=== PATIENT | male | born 1965 | race Caucasian/White ===

== ENCOUNTER 2017-03-01 18:40 | Emergency (ER) | payer MEDICARE ==
[2017-03-01 18:47] VITALS: BP 138/79; PULSE 79; RESP 20; TEMP 99
--- NOTE | 2017-03-01 20:11 | ED ---
ENT HPI - General Chief complaint: ENT Stated complaint: sore throat, naseem, difficulty swallowing Time Seen by Provider: 03/01/17 19:46 Source: patient Mode of arrival: ambulatory Limitations: no limitations - History of Present Illness Initial comments: Patient is a 51-year-old male presenting to the emergency department with chief complaint of sore throat that started one day ago. Patient states it feels like swallowing glass when he tries to drink something. Patient states he takes doxycycline every day for chronic tooth infection. Patient denies dental pain. Patient denies chills, fevers, nausea, vomiting, shortness of breath, chest pain, abdominal pain, numbness or tingling. Patient denies similar symptoms in past. Patient denies sick contacts. Patient denies ear pain. - Related Data Home Medications Medication Instructions Recorded Confirmed ALPRAZolam [Xanax] 0.25 mg PO BID PRN 03/01/17 03/01/17 Atorvastatin [Lipitor] 40 mg PO HS 03/01/17 03/01/17 Doxycycline Hyclate 100 mg PO DAILY 03/01/17 03/01/17 HYDROcodone/APAP 5-325MG [[place] 1 tab PO QID PRN 03/01/17 03/01/17 5-325] Lisinopril-Hctz 20-25 mg 1 tab PO DAILY 03/01/17 03/01/17 [Zestoretic 20-25] Meloxicam [Mobic] 15 mg PO DAILY 03/01/17 03/01/17 Metoprolol Tartrate [Lopressor] 25 mg PO BID 03/01/17 03/01/17 sitaGLIPtin PHOS/metFORMIN HCL 1 tab PO BID 03/01/17 03/01/17 [Janumet 50-1,000 mg Tablet] Allergies Allergy/AdvReac Type Severity Reaction Status Date / Time latex AdvReac Rash/Hives Verified 03/01/17 19:33 Review of Systems ROS Statement: Those systems with pertinent positive or pertinent negative responses have been documented in the HPI. ROS Other: All systems not noted in ROS Statement are negative. Past Medical History Past Medical History: No Reported History History of Any Multi-Drug Resistant Organisms: None Reported Past Surgical History: No Surgical Hx Reported Past Psychological History: Anxiety Smoking Status: Current every day smoker Past Alcohol Use History: None Reported Past Drug Use History: None Reported General Exam Limitations: no limitations General appearance: alert, in no apparent distress Head exam: Present: atraumatic, normocephalic, normal inspection Eye exam: Present: normal appearance, scleral icterus. Absent: conjunctival injection, periorbital swelling, periorbital tenderness ENT exam: Present: mucous membranes moist, TM's normal bilaterally, normal external ear exam. Absent: normal oropharynx (Posterior pharynx erythematous without exudate) Expanded Mouth exam: Present: tongue normal. Absent: drooling, trismus, muffled voice Teeth exam: Present: other (Poor dentition but no evidence of abscess. No swollen gums) Throat exam: other (Posterior pharynx erythema without exudate). negative: tonsillar erythema, tonsillomegaly, R peritonsillar mass, L peritonsillar mass Neck exam: Present: normal inspection, full ROM. Absent: tenderness, meningismus, lymphadenopathy Respiratory exam: Present: normal lung sounds bilaterally. Absent: respiratory distress, wheezes, rales, rhonchi, stridor Cardiovascular Exam: Present: regular rate, normal rhythm, normal heart sounds. Absent: systolic murmur, diastolic murmur, rubs, gallop, clicks GI/Abdominal exam: Present: soft, normal bowel sounds. Absent: tenderness Extremities exam: Present: normal inspection, full ROM. Absent: tenderness Neurological exam: Present: alert, oriented X3, normal gait, other (No focal deficits noted) Psychiatric exam: Present: normal affect, normal mood Skin exam: Present: warm, dry, intact, normal color Course Vital Signs 03/01/17 18:44 Temperature 99 F Pulse Rate 79 Respiratory 20 Rate Blood Pressure 138/79 O2 Sat by Pulse 97 Oximetry Medical Decision Making - Medical Decision Making Pharyngitis suspect viral. Patient instructed to continue Motrin or Tylenol for pain along with soft and cold foods. Patient instructed to use warm salt water gargles and throat lozenges. Patient instructed to follow-up with primary care physician. Patient instructed to return to the emergency department with any new or worsening symptoms. Patient agrees to treatment plan. Discharge instructions and return parameters reviewed. - Lab Data Lab Results 03/01/17 Range/Units 19:54 Group A Strep Rapid Negative (Negative) Disposition Clinical Impression: Pharyngitis Disposition: HOME SELF-CARE Condition: Good Instructions: Pharyngitis (ED) Additional Instructions: Continue soft and cold foods. Continue Tylenol or Motrin for pain. Use warm saltwater gargles and throat lozenges as necessary. Follow-up with primary care physician as directed. Please return to the emergency department with difficulty breathing, inability to swallow or open jaw, or any other worsening symptoms. Referrals: Patrick English MD [Primary Care Provider] - 1-2 days Time of Disposition: 20:33
[2017-03-01] MEDS ORDERED: IBUPROFEN 600 MG TAB PO STA (20:29)
== END 2017-03-01 20:37 | disposition home or self-care (01) ==
LOC: EC 18:40
DX: J02.9 Acute pharyngitis, unspecified (principal); F17.200 Nicotine dependence, unspecified, uncomplicated; Z91.040 Latex allergy status; Z79.1 Long term (current) use of non-steroidal anti-inflammatories (NSAID); Z79.84 Long term (current) use of oral hypoglycemic drugs; Z79.899 Other long term (current) drug therapy
CPT/HCPCS: 87081; 87430; 99284

== ENCOUNTER 2017-06-27 18:58 | Inpatient (IN) | payer MEDICARE, OTHER ==
[2017-06-27 19:38] LABS: Basophils # (A) 0.1 k/uL (0-0.2); Basophils % (A) 1 %; CH 31.3; CHCM 33.7; Eosinophils # (A) 0.4 k/uL (0-0.7); Eosinophils % (A) 4 %; HCT 44.9 % (39.0-53.0); HDW 2.48; HGB 14.7 gm/dL (13.0-17.5); Luc # (Auto) 0.16; Luc % (Auto) 2; Lymphocytes # (A) 3.6 k/uL (1.0-4.8); Lymphocytes % (A) 36 %; MCH 30.6 pg (25.0-35.0); MCHC 32.8 g/dL (31.0-37.0); MCV 93.3 fL (80.0-100.0); Mean Platelet Volume 7.8; Monocytes # (A) 0.6 k/uL (0-1.0); Monocytes % (A) 6 %; Neutrophils # (A) 5.2 k/uL (1.3-7.7); Neutrophils % (A) 51 %; RBC 4.81 m/uL (4.30-5.90); RDW 13.1 % (11.5-15.5); WBC (Perox) 9.91
[2017-06-27 20:15] LABS: Anion Gap 10 mmol/L; Blood Urea Nitrogen 17 mg/dL (9-20); Carbon Dioxide 25 mmol/L (22-30); Chloride 101 mmol/L (98-107); Glucose 198 mg/dL (74-99); Non-African American GFR(MDRD) >60 (>60 ml/min/1.73 sqM); Potassium 4.1 mmol/L (3.5-5.1); Sodium 136 mmol/L (137-145)
[2017-06-27] MEDS ORDERED: HEPARIN SODIUM,PORCINE 5,000 UNIT/ML 1 ML VIAL IV PRN (20:34)
[2017-06-27 20:44] LABS: Glucose,Whole Blood 242 mg/dL (75-99)
[2017-06-27] MEDS ORDERED: HEPARIN SODIUM,PORCINE/D5W PMX 25,000 UNIT in DEXTROSE/WATER 1 500ML.BAG IV SCH (20:45)
[2017-06-27] MEDS ORDERED: ASPIRIN 81 MG PO STA (20:59)
[2017-06-27] MEDS ORDERED: NITROGLYCERIN OINT 1 INCH/GM PACKET TOPICAL PRN (21:00)
[2017-06-27] MEDS ORDERED: LORATADINE 10 MG TAB PO SCH (21:00)
[2017-06-27] MEDS: ALPRAZolam 0.5 MG TAB PO PRN (21:35)
[2017-06-27] MEDS: INSULIN LISPRO (humaLOG) 300 UNIT/3 ML VIAL SQ SCH (21:39)
[2017-06-27] MEDS: LISINOPRIL-HCTZ 20-25 MG 1 EACH TAB PO SCH (21:39)
[2017-06-27] MEDS: SODIUM CHLORIDE 0.9% 1,000 ML IV SCH (22:04)
[2017-06-27] MEDS ORDERED: HYDROcodone/APAP 10-325MG 1 EACH TAB PO PRN (22:14)
[2017-06-27] MEDS ORDERED: ALBUTEROL NEBULIZED 2.5 MG/3 ML INHALATION PRN (22:18)
[2017-06-28 02:32] LABS: Basophils # (A) 0.1 k/uL (0-0.2); Basophils % (A) 1 %; CH 30.3; CHCM 33.3; Eosinophils # (A) 0.4 k/uL (0-0.7); Eosinophils % (A) 4 %; HCT 41.2 % (39.0-53.0); HDW 2.32; HGB 13.8 gm/dL (13.0-17.5); Luc # (Auto) 0.15; Luc % (Auto) 2; Lymphocytes # (A) 3.1 k/uL (1.0-4.8); Lymphocytes % (A) 37 %; MCH 30.6 pg (25.0-35.0); MCHC 33.4 g/dL (31.0-37.0); MCV 91.6 fL (80.0-100.0); Mean Platelet Volume 8.8; Monocytes # (A) 0.6 k/uL (0-1.0); Monocytes % (A) 7 %; Neutrophils # (A) 4.1 k/uL (1.3-7.7); Neutrophils % (A) 49 %; RDW 14.2 % (11.5-15.5); WBC 8.4 k/uL (3.8-10.6); WBC (Perox) 8.83
[2017-06-28 02:50] LABS: Anion Gap 5 mmol/L; Blood Urea Nitrogen 18 mg/dL (9-20); Calcium 9.1 mg/dL (8.4-10.2); Carbon Dioxide 27 mmol/L (22-30); Chloride 103 mmol/L (98-107); Glucose 204 mg/dL (74-99); Non-African American GFR(MDRD) >60 (>60 ml/min/1.73 sqM); Sodium 135 mmol/L (137-145)
[2017-06-28 05:24] LABS: Glucose,Whole Blood 183 mg/dL (75-99)
[2017-06-28] MEDS: INSULIN LISPRO (humaLOG) 300 UNIT/3 ML VIAL SQ SCH ×2 (06:15→13:13)
[2017-06-28] MEDS: SODIUM CHLORIDE 0.9% 1,000 ML IV SCH ×2 (06:16→16:50)
[2017-06-28] MEDS: LISINOPRIL-HCTZ 20-25 MG 1 EACH TAB PO SCH (06:18)
[2017-06-28] MEDS ORDERED: MIDAZOLAM 2 MG/2 ML VIAL IVP ONE (07:43)
[2017-06-28] MEDS ORDERED: diphenhydrAMINE 50 MG/ML 1 ML VIAL IVP ONE (07:43)
[2017-06-28] MEDS ORDERED: LIDOCAINE 2% INJ 20 MG/ML SQ ONE (07:44)
[2017-06-28] MEDS ORDERED: fentaNYL (PF) 50 MCG/ML 2 ML AMP IVP ONE (07:46)
[2017-06-28] MEDS ORDERED: SODIUM CHLORIDE 0.9% 1,000 ML IV ONE (07:48)
[2017-06-28] MEDS ORDERED: BUDESONIDE 0.5 MG/2 ML NEBU INHALATION SCH (08:00)
[2017-06-28] MEDS ORDERED: RX INFO: IV CONTRAST WAS GIVEN 1 EACH MISC MISCELLANE PRN (08:00)
[2017-06-28] MEDS ORDERED: IOHEXOL 350 MG/ML 125ML BOTTLE INJ ONE (08:04)
--- NOTE | 2017-06-28 08:08 | P.OP ---
Date of Procedure: 06/28/17 Anesthesia: MAC (patient received moderate conscious sedation total sedation time was 15 minutes) Operative Findings: Referring Physician: [ADAMS Haro] Indication: [unstable angina] Procedure Note: [] After obtaining informed consent left heart catheterization and coronary angiogram were performed via the right femoral artery using standard Ke catheters. Patient tolerated the procedure well without any obvious immediate complications. A femoral angiogram was obtained and Angio-Seal was deployed for hemostasis. Findings: [] Hemodynamics: [left ventricular end-diastolic pressure is 18 mm Left Ventriculogram: [Not performed] Angiographic Data:] #1 Left Main Coronary Artery: [Normal size vessel and is free of stenosis] #2 Left Anterior Descending Coronary Artery: [Normal vessel and diagonal branches . mild nonobstructive disease in mid LAD] #3 Circumflex Coronary Artery: [Nondominant vessel and is free of stenosis] #4 Right Coronary Artery: [Large dominant vessel and is free of stenosis] Conclusions: #1: [mild nonobstructive disease in mid LAD] #2: [elevated left ventricular end-diastolic pressure] Plan: [medical therapy with aggressive risk factor modification]
[2017-06-28] MEDS ORDERED: ISOSORBIDE MONONITRATE ER 30 MG TAB.ER.24H PO SCH (09:00)
[2017-06-28] MEDS ORDERED: MELOXICAM 7.5 MG TAB PO SCH (09:00)
[2017-06-28] MEDS ORDERED: FAMOTIDINE 20 MG TAB PO SCH (09:00)
[2017-06-28] MEDS ORDERED: METOPROLOL SUCCINATE (ER) 100 MG TAB.ER.24H PO SCH (09:00)
[2017-06-28] MEDS ORDERED: metFORMIN 500 MG TAB PO SCH (09:00)
[2017-06-28] MEDS ORDERED: ASPIRIN 81 MG PO SCH (09:00)
[2017-06-28] MEDS ORDERED: ATORVASTATIN 40 MG TAB PO SCH (09:00)
[2017-06-28] MEDS ORDERED: PARoxetine 20 MG TAB PO SCH (09:00)
[2017-06-28] MEDS ORDERED: NICOTINE 21MG/24HR PATCH TRANSDERM SCH (09:00)
[2017-06-28] MEDS ORDERED: hydrALAZINE HCL 20 MG/ML 1 ML VIAL IVP PRN (11:07)
[2017-06-28 11:40] LABS: Glucose,Whole Blood 176 mg/dL (75-99)
[2017-06-28] MEDS ORDERED: CHOLECALCIFEROL 1,000 UNIT TAB PO SCH (12:00)
[2017-06-28 13:20] VITALS: BP 122/74; PULSE 72; RESP 16; TEMP 97
--- NOTE | 2017-06-28 14:12 | HP ---
HISTORY AND PHYSICAL DATE OF SERVICE: 06/28/2017. HISTORY OF PRESENT ILLNESS: The patient is a 52-year-old male who was admitted to [facility] with severe chest pain that lasted approximately 20 minutes and was relieved with nitroglycerin. Patient was seen by Cardiology at that time. Does have a known history of smoking, diabetes mellitus and hypertension as well as obstructive sleep apnea and does wear CPAP. The patient also with a previous cardiac cath many years ago, which was negative, done by the [place]. The patient was transferred from [facility] to [facility] for cardiac cath, which will be done today. PAST MEDICAL HISTORY: Is significant for diabetes mellitus type 2, hypertension, anxiety, high cholesterol. PAST SURGICAL HISTORY: Is significant for an appendectomy, shoulder arthroscopy, and a previous cardiac cath which was negative. ALLERGIES: Include LATEX. HOME MEDICATIONS: Claritin 10 mg p.o. daily, Lipitor 40 mg p.o. daily. Glucophage 500 mg p.o. daily. Paxil 40 mg p.o. daily. Mobic 15 mg p.o. b.i.d., lisinopril/hydrochlorothiazide 20/25 one tab p.o. b.i.d., and Xanax 1 mg p.o. b.i.d. p.r.n. SOCIAL HISTORY: Patient does have a history of smoking 2 packs per day. Denies alcohol use or any illicit drug use. The patient is a and was in [employer] for approximately 8 years and was exposed to asbestos at that time. REVIEW OF SYSTEMS: A 14-point review of systems was performed and is negative other than as stated in the HPI. PHYSICAL EXAM: General is a pleasant 52-year-old male who was seen lying in bed, just returned from the cardiac cath, sleeping but easily arousable and his is at the bedside. VITAL SIGNS: Temp 97, heart rate is 72, respiratory rate 16, blood pressure is 122/74, O2 sats 97% on room air. HEENT: Head is normocephalic, atraumatic. Pupils equal, round, react to light. Ears and nose, no discharge is noted. Mouth, moist mucous membranes. Redundant tissue in the posterior pharynx. NECK: Supple. Trachea is midline. LUNGS: With decreased breath sounds. No clear rales or wheezes. Prolonged expiratory phase. HEART: S1, S2 heard. Not tachycardic. ABDOMEN: Soft, obese. Bowel sounds are heard. EXTREMITIES: With no edema. NEUROLOGIC: Patient is sleeping but easily arousable. LAB: White count 3.4, hemoglobin 13.8, hematocrit 41.2 with 159,000 platelets. Sodium is 135, potassium is 4.0, chloride is 103, CO2 is 27, anion gap is 5, BUN is 18, creatinine 0.70, glucose is 204, calcium 9.1. Troponins less than 0.012 x2 respectively. IMAGING: No imaging to review. IMPRESSION: 1. Acute coronary syndrome, status post cardiac cath. 2. Obesity. 3. Chronic obstructive pulmonary disease, stable. 4. Type 2 diabetes mellitus. 5. Nicotine dependence. 6. Obstructive sleep apnea. PLAN: Continue current medications which have been reviewed to include patient's home medication. Continue leukotriene inhibitors. Continue bronchodilators and aerosolized steroids. GI and DVT prophylaxis. Smoking cessation is highly recommended. Cardiology recs appreciated. Expect the patient will discharge home later on this afternoon if remains stable and cardiac cath is negative. MMODL / IJN: [id number] /
[2017-06-28] MEDS: ALPRAZolam 0.5 MG TAB PO PRN (15:46)
--- NOTE | 2017-06-28 16:24 | P.DS ---
Providers Date of admission: 06/27/17 18:58 Attending physician: Bob Haro Consults: 06/27/17 20:33 Consult Physician Urgent Consulting Provider: Sebas Strauss Consult Reason/Comments: Heart cath Do you want consulting provider notified?: Yes Primary care physician: Stated None Dr. ADAMS Haro Hospital Course: Patient transferred from [facility] for left heart catheterization. The patient had no post-operative complications. Medical management per cardiology team. Ok to discharge per cardiology. Diabetes management and smoking cessation discussed. Procedures: Left heart catheterization Plan - Discharge Summary Discharge Rx Participant: Yes New Discharge Prescriptions: New Albuterol Nebulized [Ventolin Nebulized] 2.5 mg INHALATION RT-QID PRN #120 nebu PRN Reason: Shortness Of Breath Or Wheezing Aspirin 81 mg PO DAILY 30 Days #30 chew Budesonide [Pulmicort] 0.5 mg INHALATION RT-BID 30 Days #60 nebu Cholecalciferol [Vitamin D3] 5,000 unit PO DAILY@1200 30 Days #30 tab Isosorbide Mononitrate ER [Imdur] 30 mg PO DAILY #30 tab.er.24h Metoprolol Succinate (ER) [Toprol XL] 100 mg PO BID #30 tab.er.24h Montelukast [Singulair] 10 mg PO HS 30 Days #30 tab Nicotine 21Mg/24Hr Patch [Habitrol] 1 patch TRANSDERM DAILY #15 patch Continue Meloxicam [Mobic] 15 mg PO BID Lisinopril-Hctz 20-25 mg [Zestoretic 20-25] 1 tab PO BID Atorvastatin [Lipitor] 40 mg PO DAILY metFORMIN HCL [Glucophage] 500 mg PO DIRECTED PARoxetine HCL [Paxil] 40 mg PO DAILY ALPRAZolam [Xanax] 1 mg PO BID PRN PRN Reason: Anxiety Loratadine [Claritin] 10 mg PO HS Discharge Medication List Atorvastatin [Lipitor] 40 mg PO DAILY 03/01/17 [History] Lisinopril-Hctz 20-25 mg [Zestoretic 20-25] 1 tab PO BID 03/01/17 [History] Meloxicam [Mobic] 15 mg PO BID 03/01/17 [History] ALPRAZolam [Xanax] 1 mg PO BID PRN 06/27/17 [History] Loratadine [Claritin] 10 mg PO HS 06/27/17 [History] PARoxetine HCL [Paxil] 40 mg PO DAILY 06/27/17 [History] metFORMIN HCL [Glucophage] 500 mg PO DIRECTED 06/27/17 [History] Albuterol Nebulized [Ventolin Nebulized] 2.5 mg INHALATION RT-QID PRN #120 nebu 06/28/17 [Rx] Aspirin 81 mg PO DAILY 30 Days #30 chew 06/28/17 [Rx] Budesonide [Pulmicort] 0.5 mg INHALATION RT-BID 30 Days #60 nebu 06/28/17 [Rx] Cholecalciferol [Vitamin D3] 5,000 unit PO DAILY@1200 30 Days #30 tab 06/28/17 [ Rx] Isosorbide Mononitrate ER [Imdur] 30 mg PO DAILY #30 tab.er.24h 06/28/17 [Rx] Metoprolol Succinate (ER) [Toprol XL] 100 mg PO BID #30 tab.er.24h 06/28/17 [Rx] Montelukast [Singulair] 10 mg PO HS 30 Days #30 tab 06/28/17 [Rx] Nicotine 21Mg/24Hr Patch [Habitrol] 1 patch TRANSDERM DAILY #15 patch 06/28/17 [ Rx] Follow up Appointment(s)/Referral(s): Sebas Strauss MD [STAFF PHYSICIAN] - 4 Weeks Bob Haro MD [STAFF PHYSICIAN] - 1 Week Discharge Disposition: HOME SELF-CARE
[2017-06-28] MEDS ORDERED: MONTELUKAST 10 MG TAB PO SCH (21:00)
== END 2017-06-28 17:59 | disposition home or self-care (01) | DRG 287 ==
LOC: 6SEL 18:58 → EDSTATUS 06-28 07:30
PROVIDERS: ADMIT Internal Medicine Pulmonary Disease; ATTEND Internal Medicine Pulmonary Disease
PROC: 4A023N7 Measurement of Cardiac Sampling and Pressure, Left Heart, Percutaneous Approach (ICD-10-PCS; principal; 2017-06-27)
PROC: B2111ZZ Fluoroscopy of Multiple Coronary Arteries using Low Osmolar Contrast (ICD-10-PCS; principal; 2017-06-27)
DX: I24.9 Acute ischemic heart disease, unspecified (principal); I10 Essential (primary) hypertension; E11.9 Type 2 diabetes mellitus without complications; E66.9 Obesity, unspecified; E78.00 Pure hypercholesterolemia, unspecified; F17.200 Nicotine dependence, unspecified, uncomplicated; G47.33 Obstructive sleep apnea (adult) (pediatric); J44.9 Chronic obstructive pulmonary disease, unspecified; Z77.090 Contact with and (suspected) exposure to asbestos; Z79.84 Long term (current) use of oral hypoglycemic drugs; Z79.899 Other long term (current) drug therapy; Z91.040 Latex allergy status
CPT/HCPCS: 80048; 83036; 84484; 85025; 85730; 93458

== ENCOUNTER 2018-04-20 16:40 | Inpatient (IN) | payer OTHER, MEDICARE ==
[2018-04-20] MEDS ORDERED: SODIUM CHLORIDE 0.9% 1,000 ML IV STA ×2 (16:48)
[2018-04-20 17:06] LABS: Basophils # (A) 0.1 k/uL (0-0.2); Basophils % (A) 1 %; Eosinophils # (A) 0.5 k/uL (0-0.7); Eosinophils % (A) 4 %; HGB 16.7 gm/dL (13.0-17.5); Lymphocytes # (A) 3.3 k/uL (1.0-4.8); Lymphocytes % (A) 26 %; MCH 30.6 pg (25.0-35.0); MCHC 34.1 g/dL (31.0-37.0); MCV 89.7 fL (80.0-100.0); Mean Platelet Volume 8.1; Monocytes # (A) 0.9 k/uL (0-1.0); Monocytes % (A) 7 %; Neutrophils # (A) 7.9 k/uL (1.3-7.7); Neutrophils % (A) 62 %; Platelet Count 197 k/uL (150-450); RBC 5.46 m/uL (4.30-5.90); RDW 13.1 % (11.5-15.5); WBC 12.8 k/uL (3.8-10.6)
--- NOTE | 2018-04-20 17:11 | ED ---
Syncope HPI - General Chief Complaint: Syncope Stated Complaint: cardiac Time Seen by Provider: 04/20/18 16:40 Source: patient, EMS, RN notes reviewed Mode of arrival: EMS Limitations: no limitations - History of Present Illness Initial Comments: This is a 52-year-old male history of SC and hypertension in the past who was at a graduation alliance party for his daughter today he apparently did not eat or drink much who felt dizzy felt like he might pass out is unclear whether he did pass out urinary sitting in a step and be helped to a chair. Initial blood pressure 72/40 3 repeat was 84/54 some clear whether he fell or not he did have an abrasion or is evidence states which she states is somewhat tender but does not recall acute falling he denies any head neck or back pain or loss of function is upper or lower extremities. No urinary or fecal incontinence no seizure- like activity reported MD Complaint: felt faint, almost passed out - Related Data Home Medications Medication Instructions Recorded Confirmed Atorvastatin [Lipitor] 40 mg PO DAILY 03/01/17 06/27/17 Lisinopril-Hctz 20-25 mg 1 tab PO BID 03/01/17 06/27/17 [Zestoretic 20-25] Meloxicam [Mobic] 15 mg PO BID 03/01/17 06/27/17 ALPRAZolam [Xanax] 1 mg PO BID PRN 06/27/17 06/27/17 Loratadine [Claritin] 10 mg PO HS 06/27/17 06/27/17 PARoxetine HCL [Paxil] 40 mg PO DAILY 06/27/17 06/27/17 metFORMIN HCL [Glucophage] 500 mg PO DIRECTED 06/27/17 06/27/17 Previous Rx's Medication Instructions Recorded Albuterol Nebulized [Ventolin 2.5 mg INHALATION RT-QID PRN #120 06/28/17 Nebulized] nebu Aspirin 81 mg PO DAILY 30 Days #30 chew 06/28/17 Budesonide [Pulmicort] 0.5 mg INHALATION RT-BID 30 Days 06/28/17 #60 nebu Cholecalciferol [Vitamin D3] 5,000 unit PO DAILY@1200 30 Days 06/28/17 #30 tab Isosorbide Mononitrate ER [Imdur] 30 mg PO DAILY #30 tab.er.24h 06/28/17 Metoprolol Succinate (ER) [Toprol 100 mg PO BID #30 tab.er.24h 06/28/17 XL] Montelukast [Singulair] 10 mg PO HS 30 Days #30 tab 06/28/17 Nicotine 21Mg/24Hr Patch [Habitrol] 1 patch TRANSDERM DAILY #15 patch 06/28/17 Allergies Allergy/AdvReac Type Severity Reaction Status Date / Time latex Allergy Rash/Hives Verified 04/20/18 16:48 Review of Systems ROS Statement: Those systems with pertinent positive or pertinent negative responses have been documented in the HPI. ROS Other: All systems not noted in ROS Statement are negative. Past Medical History Past Medical History: Coronary Artery Disease (CAD), Chest Pain / Angina, Diabetes Mellitus, Hyperlipidemia, Hypertension, Sleep Apnea/CPAP/BIPAP Additional Past Medical History / Comment(s): backsebastian, pt stateed"va told me i have l4-l5 fx not sure of severity of it untilit get an mri-waiting on va". asbestos exposure while in [employer] History of Any Multi-Drug Resistant Organisms: None Reported Past Surgical History: Appendectomy, Heart Catheterization Additional Past Surgical History / Comment(s): tamar shoulder sx x2, rt knee sx- "not sure what they did" Past Anesthesia/Blood Transfusion Reactions: No Reported Reaction Past Psychological History: Anxiety Smoking Status: Current every day smoker Past Alcohol Use History: None Reported Past Drug Use History: None Reported - Past Family History Mother Family Medical History: Hypertension Additional Family Medical History / Comment(s): hiatal hernia, "heart problems" Father Family Medical History: Hypertension General Exam - General Exam Comments Initial Comments: This is a well-developed well-nourished awake alert oriented 3 male Limitations: no limitations General appearance: alert, in no apparent distress Head exam: Present: normocephalic, normal inspection, other (Abrasion noted to the right lateral orbit no step-off or crepitation some tenderness noted) Eye exam: Present: normal appearance, PERRL, EOMI. Absent: scleral icterus, conjunctival injection, periorbital swelling ENT exam: Present: normal exam, mucous membranes moist Neck exam: Present: normal inspection, full ROM. Absent: tenderness, meningismus, lymphadenopathy Respiratory exam: Present: normal lung sounds bilaterally. Absent: respiratory distress, wheezes, rales, rhonchi, stridor Cardiovascular Exam: Present: regular rate, normal rhythm, normal heart sounds. Absent: systolic murmur, diastolic murmur, rubs, gallop, clicks GI/Abdominal exam: Present: soft, normal bowel sounds. Absent: distended, tenderness, guarding, rebound, rigid Extremities exam: Present: normal inspection, full ROM, normal capillary refill. Absent: tenderness, pedal edema, joint swelling, calf tenderness Back exam: Present: normal inspection Neurological exam: Present: alert, oriented X3, CN II-XII intact Psychiatric exam: Present: normal affect, normal mood Skin exam: Present: warm, intact, normal color, diaphoretic. Absent: rash Course Vital Signs 04/20/18 04/20/18 04/20/18 16:46 17:43 18:31 Temperature 98.0 F Pulse Rate 74 80 60 Respiratory 16 18 16 Rate Blood Pressure 81/48 79/45 91/51 O2 Sat by Pulse 92 L 98 98 Oximetry 04/20/18 19:14 Temperature 97.8 F Pulse Rate 70 Respiratory 18 Rate Blood Pressure 96/55 O2 Sat by Pulse 95 Oximetry - Reevaluation(s) Reevaluation #1: 04/20/18 19:24 Patient is more awake and alert and does feel better after IV hydration those blood pressure did remain diminished. After discussion the patient's she noted that he did have an episode of syncope and did pass out for a few minutes. EKG Findings - EKG Results: EKG: sinus rhythm (Sinus rhythm a 75. Interval 154 QRS duration 96 QT since QTC 392/437 old inferior changes noted) Medical Decision Making - Medical Decision Making I did discuss [employer] the patient family Dr. Wayne. Patient will be admitted for evaluation of syncope dehydration and renal insufficiency. He doesn't this time appear to be responding to IV fluids. - Lab Data Result diagrams: 04/20/18 16:50 04/20/18 16:50 Lab Results 04/20/18 04/20/18 04/20/18 Range/Units 16:50 16:50 16:50 WBC 12.8 H (3.8-10.6) k/uL RBC 5.46 (4.30-5.90) m/uL Hgb 16.7 (13.0-17.5) gm/dL Hct 49.0 (39.0-53.0) % MCV 89.7 (80.0-100.0) fL MCH 30.6 (25.0-35.0) pg MCHC 34.1 (31.0-37.0) g/dL RDW 13.1 (11.5-15.5) % Plt Count 197 (150-450) k/uL Neutrophils % 62 % Lymphocytes % 26 % Monocytes % 7 % Eosinophils % 4 % Basophils % 1 % Neutrophils # 7.9 H (1.3-7.7) k/uL Lymphocytes # 3.3 (1.0-4.8) k/uL Monocytes # 0.9 (0-1.0) k/uL Eosinophils # 0.5 (0-0.7) k/uL Basophils # 0.1 (0-0.2) k/uL PT (9.0-12.0) sec INR (<1.2) APTT (22.0-30.0) sec D-Dimer (<0.60) mg/L FEU Sodium 136 L (137-145) mmol/L Potassium 4.2 (3.5-5.1) mmol/L Chloride 100 (98-107) mmol/L Carbon Dioxide 27 (22-30) mmol/L Anion Gap 9 mmol/L BUN 24 H (9-20) mg/dL Creatinine 1.60 H (0.66-1.25) mg/dL Est GFR (CKD-EPI)AfAm 57 (>60 ml/min/1.73 sqM) Est GFR (CKD-EPI)NonAf 49 (>60 ml/min/1.73 sqM) Glucose 191 H (74-99) mg/dL Plasma Lactic Acid Dante (0.7-2.0) mmol/L Calcium 9.7 (8.4-10.2) mg/dL Magnesium 1.7 (1.6-2.3) mg/dL Total Bilirubin 0.9 (0.2-1.3) mg/dL AST 40 (17-59) U/L ALT 68 (21-72) U/L Alkaline Phosphatase 96 (38-126) U/L Total Creatine Kinase 82 (55-170) U/L CK-MB (CK-2) <0.2 (0.0-2.4) ng/mL CK-MB (CK-2) Rel Index Troponin I <0.012 (0.000-0.034) ng/mL Total Protein 7.1 (6.3-8.2) g/dL Albumin 4.2 (3.5-5.0) g/dL 04/20/18 04/20/18 Range/Units 16:50 16:50 WBC (3.8-10.6) k/uL RBC (4.30-5.90) m/uL Hgb (13.0-17.5) gm/dL Hct (39.0-53.0) % MCV (80.0-100.0) fL MCH (25.0-35.0) pg MCHC (31.0-37.0) g/dL RDW (11.5-15.5) % Plt Count (150-450) k/uL Neutrophils % % Lymphocytes % % Monocytes % % Eosinophils % % Basophils % % Neutrophils # (1.3-7.7) k/uL Lymphocytes # (1.0-4.8) k/uL Monocytes # (0-1.0) k/uL Eosinophils # (0-0.7) k/uL Basophils # (0-0.2) k/uL PT 10.6 (9.0-12.0) sec INR 1.1 (<1.2) APTT 21.9 L (22.0-30.0) sec D-Dimer 0.19 (<0.60) mg/L FEU Sodium (137-145) mmol/L Potassium (3.5-5.1) mmol/L Chloride (98-107) mmol/L Carbon Dioxide (22-30) mmol/L Anion Gap mmol/L BUN (9-20) mg/dL Creatinine (0.66-1.25) mg/dL Est GFR (CKD-EPI)AfAm (>60 ml/min/1.73 sqM) Est GFR (CKD-EPI)NonAf (>60 ml/min/1.73 sqM) Glucose (74-99) mg/dL Plasma Lactic Acid Dante 1.9 (0.7-2.0) mmol/L Calcium (8.4-10.2) mg/dL Magnesium (1.6-2.3) mg/dL Total Bilirubin (0.2-1.3) mg/dL AST (17-59) U/L ALT (21-72) U/L Alkaline Phosphatase (38-126) U/L Total Creatine Kinase (55-170) U/L CK-MB (CK-2) (0.0-2.4) ng/mL CK-MB (CK-2) Rel Index Troponin I (0.000-0.034) ng/mL Total Protein (6.3-8.2) g/dL Albumin (3.5-5.0) g/dL - Radiology Data Radiology results: report reviewed (I did review the imaging and report no definite acute findings.), image reviewed Critical Care Time Critical Care Time: Yes Critical Care Time: 32 minutes of critical care time which includes monitoring EMS run and discussed with paramedics history physical labs x-rays several reevaluation of the patient to response to therapy discuss with the patient and his family discuss with the admitting physician admission orders and documentation of the above Disposition Clinical Impression: Syncope and collapse, Hypotensive episode, Dehydration, Renal insufficiency syndrome Disposition: ADMITTED IP TO THIS [facility] Condition: Stable Referrals: [facility],Clinic [Primary Care Provider] - 1-2 days
[2018-04-20 17:14] LABS: Albumin 4.2 g/dL (3.5-5.0); Calcium 9.7 mg/dL (8.4-10.2); Magnesium 1.7 mg/dL (1.6-2.3); Potassium 4.2 mmol/L (3.5-5.1); Total Bilirubin 0.9 mg/dL (0.2-1.3); Total Protein 7.1 g/dL (6.3-8.2)
[2018-04-20 17:27] LABS: Creatine Kinase 82 U/L (55-170)
[2018-04-20 17:38] LABS: D-Dimer 0.19 mg/L FEU (<0.60); INR 1.1 (<1.2); Partial Thromboplastin Time 21.9 sec (22.0-30.0); Prothrombin Time 10.6 sec (9.0-12.0)
[2018-04-20 17:40] LABS: Creatine Kinase MB <0.2 ng/mL (0.0-2.4); Troponin I <0.012 ng/mL (0.000-0.034)
[2018-04-20] MEDS ORDERED: SODIUM CHLORIDE 0.9% 2,000 ML IV ONE (18:07)
--- NOTE | 2018-04-20 18:11 | CT ---
EXAMINATION TYPE: CT brain wo con DATE OF EXAM: 04/20/2018 HISTORY: syncope CT DLP: 843 mGycm. Automated Exposure Control for Dose Reduction was Utilized. TECHNIQUE: CT scan of the head is performed without contrast. COMPARISON: None. FINDINGS: There is no acute intracranial hemorrhage or midline shift identified. There is diffuse v entricular and sulcal prominence consistent with diffuse age-related cerebral atrophy. There is low- attenuation in the periventricular white matter consistent with chronic small vessel ischemic change. The globes are intact and the visualized sinuses are clear. IMPRESSION: No acute intracranial hemorrhage or midline shift. There is diffuse age-related cerebra l atrophy and chronic small vessel ischemic change noted.
--- NOTE | 2018-04-20 18:12 | XR ---
EXAMINATION TYPE: XR chest 2V DATE OF EXAM: 04/20/2018 COMPARISON: NONE HISTORY: Syncope TECHNIQUE: Frontal and lateral views of the chest are obtained. FINDINGS: There is no focal air space opacity, pleural effusion, or pneumothorax seen. The cardiac silhouette size is within normal limits. The osseous structures are intact. IMPRESSION: No acute cardiopulmonary process.
[2018-04-20] MEDS ORDERED: ACETAMINOPHEN TAB 325 MG TAB PO PRN (19:28)
[2018-04-20] MEDS ORDERED: NALOXONE 0.4 MG/ML 1 ML VIAL IV PRN (19:28)
[2018-04-20] MEDS ORDERED: ALBUTEROL NEBULIZED 2.5 MG/3 ML INHALATION PRN (19:31)
[2018-04-20] MEDS ORDERED: ALPRAZolam 1 MG TAB PO PRN (19:31)
[2018-04-20] MEDS ORDERED: metFORMIN 500 MG TAB PO SCH (19:45)
[2018-04-20] MEDS: BUDESONIDE 0.5 MG/2 ML NEBU INHALATION SCH (20:27)
[2018-04-20 20:31] VITALS: RESP 16
[2018-04-20] MEDS: NICOTINE 21MG/24HR PATCH TRANSDERM SCH (20:46)
[2018-04-20] MEDS: METOPROLOL SUCCINATE (ER) 100 MG TAB.ER.24H PO SCH (20:48)
[2018-04-20 20:53] LABS: Glucose,Whole Blood 194 mg/dL (75-99)
[2018-04-20] MEDS ORDERED: MONTELUKAST 10 MG TAB PO SCH (21:00)
[2018-04-20] MEDS ORDERED: LORATADINE 10 MG TAB PO SCH (21:00)
[2018-04-20] MEDS: INSULIN ASPART 100 UNIT/ML 1 ML 10 ML VIAL SQ SCH (21:10)
[2018-04-20] MEDS: SODIUM CHLORIDE 0.9% 1,000 ML IV SCH (21:11)
[2018-04-20] MEDS ORDERED: HYDROcodone/APAP 10-325MG 1 EACH TAB PO PRN (21:49)
[2018-04-20 22:48] VITALS: BMI 31.8
[2018-04-20 23:42] LABS: Appearance,Urine Clear (Clear); Bilirubin,Urine Negative (Negative); Blood,Urine Negative (Negative); Color,Urine Light Yellow; Glucose,Urine (UA) 4+ (Negative); Ketones,Urine Negative (Negative); Leukocyte Esterase,Urine Negative (Negative); Nitrite,Urine Negative (Negative); PH, Urine 5.5 (5.0-8.0); Protein,Urine Negative (Negative); Urobilinogen,Urine <2.0 mg/dL (<2.0)
[2018-04-21 05:23] LABS: Glucose,Whole Blood 220 mg/dL (75-99)
[2018-04-21] MEDS: INSULIN ASPART 100 UNIT/ML 1 ML 10 ML VIAL SQ SCH ×2 (06:52→13:00)
[2018-04-21] MEDS: BUDESONIDE 0.5 MG/2 ML NEBU INHALATION SCH (08:33)
[2018-04-21] MEDS ORDERED: ASPIRIN 81 MG PO SCH (09:00)
[2018-04-21] MEDS ORDERED: PARoxetine 20 MG TAB PO SCH (09:00)
[2018-04-21] MEDS ORDERED: ATORVASTATIN 40 MG TAB PO SCH (09:00)
[2018-04-21] MEDS ORDERED: ISOSORBIDE MONONITRATE ER 30 MG TAB.ER.24H PO SCH (09:00)
[2018-04-21] MEDS ORDERED: MELOXICAM 7.5 MG TAB PO SCH (09:00)
[2018-04-21] MEDS: NICOTINE 21MG/24HR PATCH TRANSDERM SCH (09:50)
[2018-04-21] MEDS: METOPROLOL SUCCINATE (ER) 100 MG TAB.ER.24H PO SCH (09:51)
--- NOTE | 2018-04-21 11:22 | P.CRDCN ---
History of Present Illness Consult date: 04/21/18 Requesting physician: India Preston Consult reason: sycope Chief complaint: Syncope History of present illness: This is a 52-year-old gentleman with history of hypertension, hyperlipidemia, diabetes, nicotine dependence, who follows regularly at the [facility], he also states he had history of prior myocardial infarction, he underwent a cardiac catheterization in June 2017 which revealed mild nonobstructive disease in the LAD and medical therapy was advised at that time. He also states that he does have history of prior CVA. He presented to the hospital on this occasion following an episode of syncope. According to the patient he was having a graduation ceremony at his house for his daughter, was very hot and humid outside, he was walking up a flight of stairs and became extremely dizzy, he states that he does recall sitting down on the steps because of the dizziness , the next thing he recalls is that he was carried up to the top of the steps. He denies losing bowel or bladder function, he states that he was hot and dry, no clamminess, he does recall someone telling him he was pale. EMS was called, blood pressure on their arrival 72/40 with a heart rate in the 80s, 95% on room air, blood sugar 213. EKG on arrival here showed a normal sinus rhythm with inferior Q waves. White blood cell count 12.8, hemoglobin 16.7, platelet count 197. Sodium 136, potassium 4.2, BUN 24, creatinine 1.6. Magnesium 1.7. Troponin 0.012. At the time of my examination this morning, patient feels well , denies any dizziness or lightheadedness, states that he feels back to his normal self. CT of the brain does not reveal any acute intracranial hemorrhage or midline shift. Chest x-ray does not reveal any acute cardiopulmonary process. Past Medical History Past Medical History: Coronary Artery Disease (CAD), Chest Pain / Angina, CVA/ TIA, Diabetes Mellitus, Hyperlipidemia, Hypertension, Sleep Apnea/CPAP/BIPAP Additional Past Medical History / Comment(s): kat pt stateed"mi told me i have l4-l5 fx not sure of severity of it untilit get an mri-waiting on mi". asbestos exposure while in [employer] pt states he had a stroke in 2002 with residual left sided facial droop. History of Any Multi-Drug Resistant Organisms: None Reported Past Surgical History: Appendectomy, Heart Catheterization Additional Past Surgical History / Comment(s): tamar shoulder sx x2, rt knee sx- "not sure what they did" Past Anesthesia/Blood Transfusion Reactions: No Reported Reaction Past Psychological History: Anxiety Additional Psychological History / Comment(s): pt lives with and daughter in 2 story home that has 4 porchs teps. no home care services, has cpap machine. pt on disabilty. Smoking Status: Current every day smoker Past Alcohol Use History: None Reported Additional Past Alcohol Use History / Comment(s): started smoking at age 16 smokes 1ppd. Past Drug Use History: None Reported - Past Family History Mother Family Medical History: Hypertension Additional Family Medical History / Comment(s): hiatal hernia, "heart problems" Father Family Medical History: Hypertension Medications and Allergies Home Medications Medication Instructions Recorded Confirmed Type Atorvastatin [Lipitor] 40 mg PO DAILY 03/01/17 06/27/17 History Lisinopril-Hctz 20-25 mg 1 tab PO BID 03/01/17 06/27/17 History [Zestoretic 20-25] Meloxicam [Mobic] 15 mg PO BID 03/01/17 06/27/17 History ALPRAZolam [Xanax] 1 mg PO BID PRN 06/27/17 06/27/17 History Loratadine [Claritin] 10 mg PO HS 06/27/17 06/27/17 History PARoxetine HCL [Paxil] 40 mg PO DAILY 06/27/17 06/27/17 History metFORMIN HCL [Glucophage] 500 mg PO DIRECTED 06/27/17 06/27/17 History Albuterol Nebulized [Ventolin 2.5 mg INHALATION RT-QID PRN #120 06/28/17 Rx Nebulized] nebu Aspirin 81 mg PO DAILY 30 Days #30 chew 06/28/17 Rx Budesonide [Pulmicort] 0.5 mg INHALATION RT-BID 30 Days 06/28/17 Rx #60 nebu Cholecalciferol [Vitamin D3] 5,000 unit PO DAILY@1200 30 Days 06/28/17 Rx #30 tab Isosorbide Mononitrate ER [Imdur] 30 mg PO DAILY #30 tab.er.24h 06/28/17 Rx Metoprolol Succinate (ER) [Toprol 100 mg PO BID #30 tab.er.24h 06/28/17 Rx XL] Montelukast [Singulair] 10 mg PO HS 30 Days #30 tab 06/28/17 Rx Nicotine 21Mg/24Hr Patch [Habitrol] 1 patch TRANSDERM DAILY #15 patch 06/28/17 Rx Allergies Allergy/AdvReac Type Severity Reaction Status Date / Time latex Allergy Rash/Hives Verified 04/20/18 16:48 Physical Exam Vitals: Vital Signs Temp Pulse Pulse Resp BP BP Pulse Ox 04/21/18 04:00 77 16 131/85 96 04/20/18 22:55 97.0 F L 84 16 129/60 95 04/20/18 20:41 70 04/20/18 20:30 96.1 F L 68 65 16 115/64 94 L 04/20/18 19:53 69 16 95 04/20/18 19:48 69 18 106/60 95 04/20/18 19:14 97.8 F 70 18 96/55 95 04/20/18 18:31 60 16 91/51 98 04/20/18 17:43 80 18 79/45 98 04/20/18 16:46 98.0 F 74 16 81/48 92 L Intake and Output 04/20/18 04/21/18 04/21/18 22:59 06:59 14:59 Intake Total 1997 640 200 Output Total 500 Balance 1997 640 -300 Intake: Intake, IV Titration 1997 640 Amount Sodium Chloride 0.9% 1, 640 000 ml @ 80 mls/hr IV . [id number] TERRENCE Rx#:[id number] Sodium Chloride 0.9% 1, 999 000 ml @ 999 mls/hr IV . Q1H1M STA Rx#:[id number] Sodium Chloride 0.9% 2, 999 000 ml @ 999 mls/hr IV . Q2H1M ONE Rx#:[id number] Oral 200 Output: Urine 500 Other: Voiding Method Toilet # Voids 2 Weight 106.594 kg 107.1 kg PHYSICAL EXAMINATION: GENERAL: 52-year-old gentleman in no acute distress at the time of my examination HEENT: Head is atraumatic, normocephalic. Pupils equal, round. Sclera anicteric. Conjunctiva are clear. Mucous membranes of the mouth are moist. Neck is supple. There is no elevated jugular venous pressure.] bruit is heard. HEART EXAMINATION: Heart S1, S2 normal. No murmur or gallop heard. CHEST EXAMINATION: Lungs are clear to auscultation and precussion. No chest wall tenderness is noted on palpation or with deep breathing. ABDOMEN: Soft, nontender. Bowel sounds are heard. No organomegaly noted. EXTREMITIES: 2+ peripheral pulses with no evidence of peripheral edema and no calf tenderness noted. NEUROLOGIC patient is awake, alert and oriented ?-3. . Results 04/20/18 16:50 04/20/18 16:50 Cardiac Enzymes 04/20/18 04/20/18 Range/Units 16:50 16:50 AST 40 (17-59) U/L CK-MB (CK-2) <0.2 (0.0-2.4) ng/mL Troponin I <0.012 (0.000-0.034) ng/mL Coagulation 04/20/18 Range/Units 16:50 PT 10.6 (9.0-12.0) sec APTT 21.9 L (22.0-30.0) sec CBC 04/20/18 Range/Units 16:50 WBC 12.8 H (3.8-10.6) k/uL RBC 5.46 (4.30-5.90) m/uL Hgb 16.7 (13.0-17.5) gm/dL Hct 49.0 (39.0-53.0) % Plt Count 197 (150-450) k/uL Comprehensive Metabolic Panel 04/20/18 Range/Units 16:50 Sodium 136 L (137-145) mmol/L Potassium 4.2 (3.5-5.1) mmol/L Chloride 100 (98-107) mmol/L Carbon Dioxide 27 (22-30) mmol/L BUN 24 H (9-20) mg/dL Creatinine 1.60 H (0.66-1.25) mg/dL Glucose 191 H (74-99) mg/dL Calcium 9.7 (8.4-10.2) mg/dL AST 40 (17-59) U/L ALT 68 (21-72) U/L Alkaline Phosphatase 96 (38-126) U/L Total Protein 7.1 (6.3-8.2) g/dL Albumin 4.2 (3.5-5.0) g/dL Current Medications Generic Name Dose Route Start Last Admin Trade Name Freq PRN Reason Stop Dose Admin Acetaminophen 650 mg 04/20/18 19:28 Tylenol Tab PO Q6HR PRN Mild Pain or Fever > 100.5 Hydrocodone Bitart/Acetaminophen 1 each 04/20/18 21:49 Carbon 10 PO Q8H PRN Pain Albuterol Sulfate 2.5 mg 04/20/18 19:31 04/20/18 20:27 Ventolin Nebulized INHALATION 2.5 mg RT-QID PRN Administration Shortness Of Breath Or Wheezing Alprazolam 1 mg 04/20/18 19:31 Xanax PO BID PRN Anxiety Aspirin 81 mg 04/21/18 09:00 04/21/18 09:51 Aspirin PO 81 mg DAILY TERRENCE Administration Atorvastatin Calcium 40 mg 04/21/18 09:00 04/21/18 09:51 Lipitor PO 40 mg DAILY TERRENCE Administration Budesonide 0.5 mg 04/20/18 20:00 04/21/18 08:33 Pulmicort INHALATION Not Given RT-BID [facility] Cholecalciferol 5,000 unit 04/21/18 12:00 04/21/18 09:51 Vitamin D3 PO 5,000 unit DAILY@1200 TERRENCE Administration Sodium Chloride 1,000 mls @ 80 mls/hr 04/20/18 19:30 04/20/18 21:11 Saline 0.9% IV 80 mls/hr .[id number] TERRENCE Administration Insulin Aspart 0 unit 04/20/18 21:00 04/21/18 06:52 Novolog SQ 4 unit ACHS TERRENCE Administration Protocol Isosorbide Mononitrate 30 mg 04/21/18 09:00 04/21/18 09:51 Imdur PO 30 mg DAILY TERRENCE Administration Loratadine 10 mg 04/20/18 21:00 04/20/18 20:46 Claritin PO 10 mg HS TERRENCE Administration Meloxicam 15 mg 04/21/18 09:00 04/21/18 09:50 Mobic PO 15 mg DAILY TERRENCE Administration Metformin HCl 500 mg 04/20/18 19:45 Glucophage PO DIRECTED TERRENCE Metoprolol Succinate 100 mg 04/20/18 21:00 04/21/18 09:51 Toprol Xl PO 100 mg BID TERRENCE Administration Montelukast Sodium 10 mg 04/20/18 21:00 04/20/18 20:46 Singulair PO 10 mg HS TERRENCE Administration Naloxone HCl 0.2 mg 04/20/18 19:28 Narcan IV Q2M PRN Opioid Reversal Nicotine 1 patch 04/20/18 20:00 04/21/18 09:50 Habitrol 21mg/24hr Patch TRANSDERM 1 patch DAILY TERRENCE Administration Paroxetine HCl 40 mg 04/21/18 09:00 04/21/18 09:51 Paxil PO 40 mg DAILY TERRENCE Administration Intake and Output 04/20/18 04/21/18 04/21/18 22:59 06:59 14:59 Intake Total 1997 640 200 Output Total 500 Balance 1997 640 -300 Intake: Intake, IV Titration 1997 640 Amount Sodium Chloride 0.9% 1, 640 000 ml @ 80 mls/hr IV . [id number] TERRENCE Rx#:[id number] Sodium Chloride 0.9% 1, 999 000 ml @ 999 mls/hr IV . Q1H1M STA Rx#:[id number] Sodium Chloride 0.9% 2, 999 000 ml @ 999 mls/hr IV . Q2H1M ONE Rx#:[id number] Oral 200 Output: Urine 500 Other: Voiding Method Toilet # Voids 2 Weight 106.594 kg 107.1 kg 04/20/18 16:50 04/20/18 16:50 EKG Interpretations (text) EKG shows normal sinus rhythm with inferior Q waves noted. Assessment and Plan Plan: Assessment and plan #1 syncope, likely secondary to hypotension, secondary to dehydration. EKG on arrival shows normal sinus rhythm with inferior Q waves. Initial troponin negative. Blood pressure on EMS arrival 70 systolic. Creatinine 1.6. #2 history of prior myocardial infarction, patient had cardiac catheterization in June of last year which revealed mild nonobstructive disease in the LAD #3 hypertension #4 hyperlipidemia #5 diabetes #6 nicotine dependence Plan We will obtain an echocardiogram with Doppler study. We will repeat one troponin, repeat creatinine. If resolved, patient may be able to be discharged home, [facility]uss in the next week. DNP note has been reviewed, I agree with a documented findings and plan of care. Patient was seen and examined.
[2018-04-21 11:41] LABS: Glucose,Whole Blood 234 mg/dL (75-99)
[2018-04-21] MEDS ORDERED: CHOLECALCIFEROL 1,000 UNIT TAB PO SCH (12:00)
[2018-04-21 12:16] LABS: Anion Gap 7 mmol/L; Blood Urea Nitrogen 21 mg/dL (9-20); Calcium 9.4 mg/dL (8.4-10.2); Carbon Dioxide 28 mmol/L (22-30); Chloride 103 mmol/L (98-107); Glucose 236 mg/dL (74-99); Potassium 4.1 mmol/L (3.5-5.1); Sodium 138 mmol/L (137-145)
[2018-04-21] MEDS: SODIUM CHLORIDE 0.9% 1,000 ML IV SCH (12:49)
[2018-04-21 13:38] VITALS: BP 108/65; PULSE 65; TEMP 97.6
--- NOTE | 2018-04-21 14:17 | P.HPIM ---
History of Present Illness Patient is a 60-year-old female came in with complains of lightheadedness and dizziness and syncopal episode lasted for a few seconds without any loss of bowel or bladder incontinence. any fever chills. Patient believes he is in hot and humid weather related to dehydration. Patient is also on lisinopril 100 chlorothiazide combination which may have contributed to his symptoms as well admission creatinine is 1.6 patient was resuscitated with IV fluids and present creatinine 0.8 troponins were negative EKG did not show any significant abnormality patient was evaluated by cardiology. Patient will undergo echocardiogram after which patient will discharge. Patient was monitored overnight on residential monitor. Review of Systems REVIEW OF SYSTEMS: CONSTITUTIONAL: No fever, no malaise, no fatigue. HEENT: No recent visual problems or hearing problems. Denied any sore throat. CARDIOVASCULAR: No chest pain, orthopnea, PND, no palpitations. PULMONARY: No shortness of breath, no cough, no hemoptysis. GASTROINTESTINAL: No diarrhea, no nausea, no vomiting, no abdominal pain. Normoactive bowel sounds. NEUROLOGICAL: No headaches, no weakness, no numbness. HEMATOLOGICAL: Denies any bleeding or petechiae. GENITOURINARY: Denies any burning micturition, frequency, or urgency. MUSCULOSKELETAL/RHEUMATOLOGICAL: Denies any joint pain, swelling, or any muscle pain. ENDOCRINE: Denies any polyuria or polydipsia. The rest of the 14-point review of systems is negative. Past Medical History Past Medical History: Coronary Artery Disease (CAD), Chest Pain / Angina, CVA/ TIA, Diabetes Mellitus, Hyperlipidemia, Hypertension, Sleep Apnea/CPAP/BIPAP Additional Past Medical History / Comment(s): kat, pt stateed"[facility] told me i have l4-l5 fx not sure of severity of it untilit get an m[facility]". asbestos exposure while in [employer] pt states he had a stroke in 2002 with residual left sided facial droop. History of Any Multi-Drug Resistant Organisms: None Reported Past Surgical History: Appendectomy, Heart Catheterization Additional Past Surgical History / Comment(s): tamar shoulder sx x2, rt knee sx- "not sure what they did" Past Anesthesia/Blood Transfusion Reactions: No Reported Reaction Past Psychological History: Anxiety Additional Psychological History / Comment(s): pt lives with and daughter in 2 story home that has 4 porchs teps. no home care services, has cpap machine. pt on disabilty. Smoking Status: Current every day smoker Past Alcohol Use History: None Reported Additional Past Alcohol Use History / Comment(s): started smoking at age 16 smokes 1ppd. Past Drug Use History: None Reported - Past Family History Mother Family Medical History: Hypertension Additional Family Medical History / Comment(s): hiatal hernia, "heart problems" Father Family Medical History: Hypertension Medications and Allergies Home Medications Medication Instructions Recorded Confirmed Type Meloxicam [Mobic] 15 mg PO DAILY 03/01/17 04/21/18 History PARoxetine HCL [Paxil] 40 mg PO DAILY 06/27/17 04/21/18 History Albuterol Nebulized [Ventolin 2.5 mg INHALATION RT-QID PRN #120 06/28/17 Rx Nebulized] nebu Aspirin 81 mg PO DAILY 30 Days #30 chew 06/28/17 04/21/18 Rx Isosorbide Mononitrate ER [Imdur] 30 mg PO DAILY #30 tab.er.24h 06/28/17 Rx Montelukast [Singulair] 10 mg PO HS 30 Days #30 tab 06/28/17 04/21/18 Rx Atorvastatin [Lipitor] 80 mg PO HS 04/21/18 04/21/18 History Baclofen [Lioresal] 10 mg PO BID 04/21/18 04/21/18 History Budesonide/Formoterol Fumarate 2 puff INHALATION RT-BID 04/21/18 04/21/18 History [Symbicort 80-4.5 Mcg Inhaler] Cholecalciferol (Vitamin D3) 2,000 unit PO DAILY 04/21/18 04/21/18 History [Vitamin D3] Hydrocodone/Acetaminophen [[place] 1 tab PO TID PRN 04/21/18 04/21/18 History 10-325] Lisinopril [Zestril] 10 mg PO DAILY #10 tab 04/21/18 Rx Metoprolol Tartrate [Lopressor] 100 mg PO BID 04/21/18 04/21/18 History Nitroglycerin Sl Tabs [Nitrostat] 0.4 mg SUBLINGUAL Q5M PRN 04/21/18 04/21/18 History Saxagliptin HCl [Onglyza] 2.5 mg PO DAILY 04/21/18 04/21/18 History Terbinafine 1% Cream [LamISIL] 1 applic TOPICAL BID 04/21/18 04/21/18 History Urea 20% Cream 1 applic TOPICAL BID 04/21/18 04/21/18 History Vitamin E 100 unit PO DAILY 04/21/18 04/21/18 History glipiZIDE [Glucotrol] 20 mg PO AC-BID 04/21/18 04/21/18 History Allergies Allergy/AdvReac Type Severity Reaction Status Date / Time latex Allergy Rash/Hives Verified 04/20/18 16:48 Physical Exam Vitals: Vital Signs Temp Pulse Pulse Resp BP BP Pulse Ox 04/21/18 12:00 97.6 F 65 16 108/65 97 04/21/18 08:00 97.3 F L 72 16 134/84 97 04/21/18 04:00 77 16 131/85 96 04/20/18 22:55 97.0 F L 84 16 129/60 95 04/20/18 20:41 70 04/20/18 20:30 96.1 F L 68 65 16 115/64 94 L 04/20/18 19:53 69 16 95 04/20/18 19:48 69 18 106/60 95 04/20/18 19:14 97.8 F 70 18 96/55 95 04/20/18 18:31 60 16 91/51 98 04/20/18 17:43 80 18 79/45 98 04/20/18 16:46 98.0 F 74 16 81/48 92 L Intake and Output 04/20/18 04/21/18 04/21/18 22:59 06:59 14:59 Intake Total 1997 640 400 Output Total 500 Balance 1997 640 -100 Intake: Intake, IV Titration 1997 640 Amount Sodium Chloride 0.9% 1, 640 000 ml @ 80 mls/hr IV . [id number] TERRENCE Rx#:[id number] Sodium Chloride 0.9% 1, 999 000 ml @ 999 mls/hr IV . Q1H1M STA Rx#:[id number] Sodium Chloride 0.9% 2, 999 000 ml @ 999 mls/hr IV . Q2H1M ONE Rx#:[id number] Oral 400 Output: Urine 500 Other: Voiding Method Toilet Toilet # Voids 2 Weight 106.594 kg 107.1 kg PHYSICAL EXAMINATION: GENERAL: The patient is alert and oriented x3, not in any acute distress. Well developed, well nourished. HEENT: Pupils are round and equally reacting to light. EOMI. No scleral icterus. No conjunctival pallor. Normocephalic, atraumatic. No pharyngeal erythema. No thyromegaly. CARDIOVASCULAR: S1 and S2 present. No murmurs, rubs, or gallops. PULMONARY: Chest is clear to auscultation, no wheezing or crackles. ABDOMEN: Soft, nontender, nondistended, normoactive bowel sounds. No palpable organomegaly. MUSCULOSKELETAL: No joint swelling or deformity. EXTREMITIES: No cyanosis, clubbing, or pedal edema. NEUROLOGICAL: Gross neurological examination did not reveal any focal deficits. SKIN: No rashes. Results CBC & Chem 7: 04/20/18 16:50 04/21/18 11:30 Labs: Abnormal Lab Results - Last 24 Hours (Table) 04/20/18 04/20/18 04/20/18 Range/Units 16:50 16:50 16:50 WBC 12.8 H (3.8-10.6) k/uL Neutrophils # 7.9 H (1.3-7.7) k/uL APTT 21.9 L (22.0-30.0) sec Sodium 136 L (137-145) mmol/L BUN 24 H (9-20) mg/dL Creatinine 1.60 H (0.66-1.25) mg/dL Glucose 191 H (74-99) mg/dL POC Glucose (mg/dL) (75-99) mg/dL Urine Glucose (UA) (Negative) 04/20/18 04/20/18 04/21/18 Range/Units 20:53 23:20 05:22 WBC (3.8-10.6) k/uL Neutrophils # (1.3-7.7) k/uL APTT (22.0-30.0) sec Sodium (137-145) mmol/L BUN (9-20) mg/dL Creatinine (0.66-1.25) mg/dL Glucose (74-99) mg/dL POC Glucose (mg/dL) 194 H 220 H (75-99) mg/dL Urine Glucose (UA) 4+ H (Negative) 04/21/18 04/21/18 Range/Units 11:30 11:39 WBC (3.8-10.6) k/uL Neutrophils # (1.3-7.7) k/uL APTT (22.0-30.0) sec Sodium (137-145) mmol/L BUN 21 H (9-20) mg/dL Creatinine (0.66-1.25) mg/dL Glucose 236 H (74-99) mg/dL POC Glucose (mg/dL) 234 H (75-99) mg/dL Urine Glucose (UA) (Negative) Thrombosis Risk Factor Assmnt - Choose All That Apply Any of the Below Risk Factors Present?: Yes Each Factor Represents 1 point: Abnormal pulmonary function (COPD), Age 41-60 years, Obesity (BMI >25) Other Risk Factors: No Thrombosis Risk Factor Assessment Total Risk Factor Score: 3 Thrombosis Risk Factor Assessment Level: Moderate Risk Assessment and Plan Plan: -Syncope: Secondary to intravascular depletion and dehydration with contribution from hydrochlorothiazide and lisinopril combination. Patient is feeling better today patient will be discharged today had good thiazide will be discontinued will cut down the dose of lisinopril patient was asked to check the blood pressure twice daily at home and take it to his primary care physician. -Myocardial infarction coronary artery disease in the past that a catheterization in the past which showed mild nonobstructive disease in left anterior descending -Hypertension next and-hyperlipidemia -Type 2 diabetes mellitus -According dependence: Counseling was provided Patient will be discharged today to follow with PCP as an outpatient and Dr. Strauss as an outpatient
--- NOTE | 2018-04-21 14:18 | P.DS ---
Providers Date of admission: 04/20/18 19:28 Attending physician: India Preston Consults: 04/20/18 19:30 Consult Physician Routine Consulting Provider: Rodriguez Castillo Consult Reason/Comments: Syncope Do you want consulting provider notified?: Yes Primary care physician: [facility] Course: Please refer to my HPI Patient Condition at Discharge: Stable Plan - Discharge Summary New Discharge Prescriptions: New Lisinopril [Zestril] 10 mg PO DAILY #10 tab Discontinued Lisinopril-Hctz 20-25 mg [Zestoretic 20-25] 1 tab PO BID No Action Meloxicam [Mobic] 15 mg PO DAILY PARoxetine HCL [Paxil] 40 mg PO DAILY Albuterol Nebulized [Ventolin Nebulized] 2.5 mg INHALATION RT-QID PRN #120 nebu PRN Reason: Shortness Of Breath Or Wheezing Aspirin 81 mg PO DAILY 30 Days #30 chew Isosorbide Mononitrate ER [Imdur] 30 mg PO DAILY #30 tab.er.24h Montelukast [Singulair] 10 mg PO HS 30 Days #30 tab Urea 20% Cream 1 applic TOPICAL BID Terbinafine 1% Cream [LamISIL] 1 applic TOPICAL BID Saxagliptin HCl [Onglyza] 2.5 mg PO DAILY Nitroglycerin Sl Tabs [Nitrostat] 0.4 mg SUBLINGUAL Q5M PRN PRN Reason: Angina Metoprolol Tartrate [Lopressor] 100 mg PO BID Hydrocodone/Acetaminophen [[place] 10-325] 1 tab PO TID PRN PRN Reason: Pain glipiZIDE [Glucotrol] 20 mg PO AC-BID Cholecalciferol (Vitamin D3) [Vitamin D3] 2,000 unit PO DAILY Budesonide/Formoterol Fumarate [Symbicort 80-4.5 Mcg Inhaler] 2 puff INHALATION RT-BID Baclofen [Lioresal] 10 mg PO BID Atorvastatin [Lipitor] 80 mg PO HS Vitamin E 100 unit PO DAILY Discharge Medication List Meloxicam [Mobic] 15 mg PO DAILY 03/01/17 [History] PARoxetine HCL [Paxil] 40 mg PO DAILY 06/27/17 [History] Albuterol Nebulized [Ventolin Nebulized] 2.5 mg INHALATION RT-QID PRN #120 nebu 06/28/17 [Rx] Aspirin 81 mg PO DAILY 30 Days #30 chew 06/28/17 [Rx] Isosorbide Mononitrate ER [Imdur] 30 mg PO DAILY #30 tab.er.24h 06/28/17 [Rx] Montelukast [Singulair] 10 mg PO HS 30 Days #30 tab 06/28/17 [Rx] Atorvastatin [Lipitor] 80 mg PO HS 04/21/18 [History] Baclofen [Lioresal] 10 mg PO BID 04/21/18 [History] Budesonide/Formoterol Fumarate [Symbicort 80-4.5 Mcg Inhaler] 2 puff INHALATION RT-BID 04/21/18 [History] Cholecalciferol (Vitamin D3) [Vitamin D3] 2,000 unit PO DAILY 04/21/18 [History] Hydrocodone/Acetaminophen [[place] 10-325] 1 tab PO TID PRN 04/21/18 [History] Lisinopril [Zestril] 10 mg PO DAILY #10 tab 04/21/18 [Rx] Metoprolol Tartrate [Lopressor] 100 mg PO BID 04/21/18 [History] Nitroglycerin Sl Tabs [Nitrostat] 0.4 mg SUBLINGUAL Q5M PRN 04/21/18 [History] Saxagliptin HCl [Onglyza] 2.5 mg PO DAILY 04/21/18 [History] Terbinafine 1% Cream [LamISIL] 1 applic TOPICAL BID 04/21/18 [History] Urea 20% Cream 1 applic TOPICAL BID 04/21/18 [History] Vitamin E 100 unit PO DAILY 04/21/18 [History] glipiZIDE [Glucotrol] 20 mg PO AC-BID 04/21/18 [History] Follow up Appointment(s)/Referral(s): [facility] [place] [Primary Care Provider] - 3 Days ([phone]) Patient Instructions/Handouts: Syncope (DC), Hypotension (DC) Discharge Disposition: HOME SELF-CARE
[2018-04-21] MEDS ORDERED: SYMBICORT 80-4.5 MCG INHALER INHALATION SCH (20:00)
[2018-04-21] MEDS ORDERED: METOPROLOL TARTRATE 50 MG TAB PO SCH (21:00)
[2018-04-22] MEDS ORDERED: ATORVASTATIN 80 MG TAB PO SCH (09:00)
[2018-04-22] MEDS ORDERED: CHOLECALCIFEROL 1,000 UNIT TAB PO SCH (12:00)
--- NOTE | 2018-04-22 12:47 | ECHOF ---
Referral Reason:syncope MEASUREMENTS -------- HEIGHT: 182.9 cm WEIGHT: 107.0 kg BP: 131/85 RVIDd: 2.7 cm (< 3.3) IVSd: 1.3 cm (0.6 - 1.1) LVIDd: 4.6 cm (3.9 - 5.3) LVPWd: 1.1 cm (0.6 - 1.1) IVSs: 1.6 cm LVIDs: 3.0 cm LVPWs: 1.5 cm LAESV Index (A-L): 18.73 ml/m Ao Diam: 3.0 cm (2.0 - 3.7) AV Cusp: 2.0 cm (1.5 - 2.6) LA Diam: 3.4 cm (2.7 - 3.8) MV EXCURSION: 28.113 mm (> 18.000) MV EF SLOPE: 180 mm/s (70 - 150) EPSS: 0.6 cm MV E Jermaine: 0.70 m/s MV DecT: 202 ms MV A Jermaine: 0.69 m/s MV E/A Ratio: 1.01 RAP: 5.00 mmHg RVSP: 17.01 mmHg FINDINGS -------- Sinus rhythm. This was a technically adequate study. The left ventricular size is normal. There is mild concentric left ventricular hypertrophy. Overa ll left ventricular systolic function is normal with, an EF between 55 - 60 %. The right ventricle is normal in size. The left atrial size is normal. The right atrial size is normal. The aortic valve is trileaflet, and appears structurally normal. No aortic stenosis or regurgitation. The mitral valve is normal. Mild mitral regurgitation is present. Mild tricuspid regurgitation present. There is no evidence of pulmonary hypertension. The right v entricular systolic pressure, as measured by Doppler, is 17.01mmHg. There is no pulmonic regurgitation present. The aortic root size is normal. There is no pericardial effusion. CONCLUSIONS -------- 1. Sinus rhythm. 2. The left ventricular size is normal. 3. There is mild concentric left ventricular hypertrophy. 4. Overall left ventricular systolic function is normal with, an EF between 55 - 60 %. 5. The left atrial size is normal. 6. The aortic valve is trileaflet, and appears structurally normal. No aortic stenosis or regurgitati on. 7. Mild mitral regurgitation is present. 8. Mild tricuspid regurgitation present. 9. There is no evidence of pulmonary hypertension. 10. There is no pulmonic regurgitation present. 11. The aortic root size is normal. 12. There is no pericardial effusion. MANAGER SOCIAL MEDIA: Lara Ahmadi RDCS
== END 2018-04-21 14:17 | disposition home or self-care (01) | DRG 641 ==
LOC: EC 16:40 → 6SEL 19:28
PROVIDERS: ADMIT Hospitalist; ATTEND Hospitalist
DX: E86.0 Dehydration (principal); M48.56XA Collapsed vertebra, not elsewhere classified, lumbar region, initial encounter for fracture; T46.6X5A Adverse effect of antihyperlipidemic and antiarteriosclerotic drugs, initial encounter; T50.2X5A Adverse effect of carbonic-anhydrase inhibitors, benzothiadiazides and other diuretics, initial encounter; E11.9 Type 2 diabetes mellitus without complications; E78.5 Hyperlipidemia, unspecified; F17.200 Nicotine dependence, unspecified, uncomplicated; F41.9 Anxiety disorder, unspecified; G47.30 Sleep apnea, unspecified; I10 Essential (primary) hypertension; I25.10 Atherosclerotic heart disease of native coronary artery without angina pectoris; I25.2 Old myocardial infarction; N28.9 Disorder of kidney and ureter, unspecified; Z77.090 Contact with and (suspected) exposure to asbestos; Z79.1 Long term (current) use of non-steroidal anti-inflammatories (NSAID); Z79.82 Long term (current) use of aspirin; Z79.84 Long term (current) use of oral hypoglycemic drugs; Z82.49 Family history of ischemic heart disease and other diseases of the circulatory system; Z86.73 Personal history of transient ischemic attack (TIA), and cerebral infarction without residual deficits
CPT/HCPCS: 36415; 70450; 71046; 80048; 80053; 81003; 82550; 82553; 83605; 83735; 84484; 85025; 85379; 85610; 85730; 93005; 93306; 94640; 96360; 96361; 99291

== ENCOUNTER 2021-12-20 06:30 | Day surgery (SDC) | payer OTHER ==
[~2021-12-20 06:30] MED LIST: LACTATED RINGERS 1,000 ML IV SCH; LIDOCAINE 1% (10MG/ML) FOR IV START INTRADERMA PRN
[2021-12-20 07:01] VITALS: RESP 18; TEMP 97.8
[2021-12-20 07:33] LABS: Glucose,Whole Blood 167 mg/dL (75-99)
[2021-12-20] MEDS ORDERED: PROPOFOL 10 MG/ML 20 ML VIAL IV ONE (07:50)
--- NOTE | 2021-12-20 08:15 | P.PCN ---
Date of Procedure: 12/20/21 Procedure(s) Performed: BRIEF HISTORY: Patient is a 56-year-old pleasant white male scheduled for an elective colonoscopy as a part of screening for colorectal neoplasia. PROCEDURE PERFORMED: Colonoscopy with biopsy. PREOPERATIVE DIAGNOSIS: Screening for colon cancer. IV sedation per Anesthesia. PROCEDURE: After informed consent was obtained, the patient, was brought into the endoscopy unit. IV sedation was administered by Anesthesia under continuous monitoring. Digital rectal examination was normal. Initially the Olympus CF-160 flexible video colonoscope was then inserted in the rectum, gradually advanced into the cecum without any difficulty. Careful examination was performed as the scope was gradually being withdrawn. Ileocecal valve and the appendiceal orifice were visualized and appeared normal. Prep was excellent. Mucosa of the cecum, appeared normal. Ascending colon there was a 3 mm polyp that was removed by cold biopsy. Rest of the ascending colon, transverse colon, descending colon, sigmoid colon, and rectum appeared normal. Retroflexion was performed in the rectum and no lesions were seen. The patient tolerated the procedure well. IMPRESSION: 3 mm ascending colon polyp status post cold biopsy Rest of the colon appeared RECOMMENDATIONS: Findings of this examination were discussed with the patient as well as his family. He was advised to follow with the biopsy results. The biopsy reveals adenoma he can have a repeat colonoscopy in 5 years..
[2021-12-20 08:35] VITALS: BP 132/84; PULSE 66
== END 2021-12-20 08:48 | disposition home or self-care (01) ==
LOC: ORWHC2ENDO 06:30
PROVIDERS: ATTEND Internal Medicine Gastroenterology
DX: Z12.11 Encounter for screening for malignant neoplasm of colon (principal); D12.2 Benign neoplasm of ascending colon; I10 Essential (primary) hypertension; E78.5 Hyperlipidemia, unspecified; G47.33 Obstructive sleep apnea (adult) (pediatric); E11.9 Type 2 diabetes mellitus without complications; Z86.73 Personal history of transient ischemic attack (TIA), and cerebral infarction without residual deficits; Z91.040 Latex allergy status; Z79.899 Other long term (current) drug therapy
CPT/HCPCS: 45380; 88305; J2704

== ENCOUNTER → 2021-12-27 | Outpatient (CLI) | payer OTHER ==
--- NOTE | 2021-12-28 03:47 | MR ---
EXAMINATION TYPE: MR abdomen wo/w con DATE OF EXAM: 12/27/2021 COMPARISON: HISTORY: Adrenal gland disorder CONTRAST: Standard multiplanar, multisequence MRI departmental protocol images were obtained without contrast a nd with 11 mL intravenous Gadavist gadolinium contrast. The liver has normal size and contour. Bile ducts are nondilated. Spleen is intact. There is no evide nce of pancreatic mass. Pancreatic duct appears normal. Stomach is intact. The gallbladder is intact. The bile ducts are not dilated. There is mild thickening of the right adrenal gland. Left adrenal gland appears normal in size. On the out of phase images there is slight decreased signal in the central right adrenal gland that c ould relate to significant fat component. Kidneys have normal size and contour. No hydronephrosis. No retroperitoneal adenopathy. Contrast imag es show no pathologic enhancement. There is no evidence of pleural effusion. Abdominal bowel pattern appears normal. No ascites. IMPRESSION: Slight thickening of the right adrenal gland that measures 10 mm in maximum thickness and has signal pattern suggestive of a myelolipoma. No change compared to old CT scan. No suspicious adrenal mass.
== END | disposition home or self-care (01) ==
LOC: RADMRIMAIN 11:29
PROVIDERS: ATTEND Family Medicine
DX: E27.9 Disorder of adrenal gland, unspecified (principal)
CPT/HCPCS: 74183; A9585

== ENCOUNTER → 2023-07-16 | Outpatient (CLI) | payer OTHER ==
[2023-07-16 18:17] LABS: Basophils # (A) 0.11 X 10*3/uL (0.00-0.10); Eosinophils # (A) 0.58 X 10*3/uL (0.04-0.35); Eosinophils % (A) 5.2 %; HCT 55.1 % (39.6-50.0); HGB 18.1 g/dL (13.0-17.0); Lymphocytes # (A) 3.48 X 10*3/uL (0.90-5.00); Lymphocytes % (A) 31.4 %; MCH 29.3 pg (27.0-32.0); MCHC 32.8 g/dL (32.0-37.0); MCV 89.2 FL (80.0-97.0); Mean Platelet Volume 11.5 FL (9.5-12.2); Monocytes # (A) 1.06 X 10*3/uL (0.20-1.00); Monocytes % (A) 9.6 %; NRBC Per 100 WBC 0 X 10*3/uL (0.00-0.01); Neutrophils # (A) 5.79 X 10*3/uL (1.80-7.70); Neutrophils % (A) 52.3 %; Platelet Count 184 X 10*3/uL (140-440); RBC 6.18 X 10*6/uL (4.40-5.60); RDW 13.5 % (11.5-14.5); WBC 11.07 X 10*3/uL (4.50-10.00)
[2023-07-16 20:25] LABS: BUN/Creat Ratio 20.57 Ratio (12.00-20.00); Blood Urea Nitrogen 14.4 mg/dL (9.0-27.0); Calcium 9.5 mg/dL (8.7-10.3); Carbon Dioxide 24.1 mmol/L (21.6-31.8); Chloride 101 mmol/L (96-109); Glucose 163 mg/dL (70-110); Potassium 3.7 mmol/L (3.5-5.5); Sodium 138 mmol/L (135-145)
== END | disposition home or self-care (01) ==
LOC: LABWHC1 13:17
PROVIDERS: ATTEND Orthopaedic Surgery Hand Surgery
DX: Z01.812 Encounter for preprocedural laboratory examination (principal); M65.341 Trigger finger, right ring finger
CPT/HCPCS: 36415; 80048; 85025

== ENCOUNTER 2023-07-24 06:00 | Day surgery (SDC) | payer OTHER ==
--- NOTE | 2023-07-22 13:09 | P.HPOR ---
History of Present Illness H&P Date: 07/22/23 Subjective: This is a 58 year old male that presents today for initial evaluation regarding a 6 month history of progressively worsening right middle finger locking, catching, clicking and pain. He's noticed over the last several month the finger has been locked down and requires a significant amount of force to extend the finger. He denies any injury or inciting event. Physical Examination: RUE: AIN/PIN/Radial/Ulnar/Median motor intact. Radial/Ulnar/Median SILT. 2+/4 Radial/Ulnar pulses palpated. 5/5 APB, 5/5 FDI. Negative Finkelsteins, negative CMC grind, negative Durkan's compression. Tenderness palpation over right middle finger A1 amilcar with associated locking, catching and clicking. Impression: 1.) Right middle finger trigger finger, incarcerated. Plan: Diagnosis and treatment options were discussed with the patient. We discussed steroid injection vs A1 amilcar release. Due to the severity of his incarcerated trigger finger he would like to go forward with right middle finger A1 amilcar release. Risks and benefits of surgery including bleeding, infection, damage to surrounding tissue, need for further surgery, residual numbness were discussed and the patient wished to go forward with surgery.The patient was agreeable with this plan. -Corbin Mart DO Orthopedic Hand/Upper Extremity Surgeon Past Medical History Past Medical History: Coronary Artery Disease (CAD), Chest Pain / Angina, CVA/TIA, Diabetes Mellitus, Hyperlipidemia, Hypertension, Sleep Apnea/CPAP/BIPAP Additional Past Medical History / Comment(s): IDDM.Backpain, pt stateed"va told me i have l4-l5 fx. Asbestos exposure while in [employer]. 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 DOES NOT USE CPAP. History of Any Multi-Drug Resistant Organisms: None Reported Past Surgical History: Appendectomy, Heart Catheterization Additional Past Surgical History / Comment(s): il shoulder sx x2. Rt knee ARTHROSCOPY Past Anesthesia/Blood Transfusion Reactions: No Reported Reaction Past Psychological History: Anxiety Smoking Status: Current every day smoker Past Alcohol Use History: None Reported Additional Past Alcohol Use History / Comment(s): started smoking at age 16 smokes 1ppd. Past Drug Use History: None Reported - Past Family History Mother Family Medical History: Hypertension Additional Family Medical History / Comment(s): hiatal hernia, "heart problems" Father Family Medical History: Hypertension Medications and Allergies Home Medications Medication Instructions Recorded Confirmed Type Meloxicam [Mobic] 15 mg PO DAILY 03/01/17 12/19/21 History Albuterol Nebulized [Ventolin 2.5 mg INHALATION RT-QID PRN #120 06/28/17 12/19/21 Rx Nebulized] nebu Aspirin 81 mg PO DAILY 30 Days #30 chew 06/28/17 12/19/21 Rx Montelukast [Singulair] 10 mg PO HS 30 Days #30 tab 06/28/17 12/19/21 Rx Atorvastatin [Lipitor] 80 mg PO HS 04/21/18 12/19/21 History Baclofen [Lioresal] 10 mg PO BID 04/21/18 12/19/21 History Budesonide/Formoterol Fumarate 2 puff INHALATION RT-BID 04/21/18 12/19/21 History [Symbicort 80-4.5 Mcg Inhaler] Cholecalciferol (Vitamin D3) 2,000 unit PO DAILY 04/21/18 12/19/21 History [Vitamin D3] Hydrocodone/Acetaminophen [[place] 1 tab PO TID PRN 04/21/18 12/19/21 History 10-325] Metoprolol Tartrate [Lopressor] 100 mg PO BID 04/21/18 12/19/21 History Nitroglycerin Sl Tabs [Nitrostat] 0.4 mg SUBLINGUAL Q5M PRN 04/21/18 12/19/21 History Urea 20% Cream 1 applic TOPICAL BID 04/21/18 12/19/21 History Insulin Aspart [NovoLOG] 60 unit SQ TID-W/MEALS 12/19/21 12/19/21 History Insulin Glargine [Lantus Vial] 50 unit SQ HS 12/19/21 12/20/21 History Isosorbide Mononitrate ER [Imdur] 30 mg PO QAM 12/19/21 12/19/21 History Lidocaine Cream 1 dose TOPICAL BID PRN 12/19/21 History PARoxetine HCL [Paxil Cr] 50 mg PO QAM 12/19/21 12/19/21 History lisinopriL [Zestril] 10 mg PO QAM 12/19/21 12/19/21 History Allergies Allergy/AdvReac Type Severity Reaction Status Date / Time latex Allergy Rash/Hives Verified 12/20/21 06:55 Physical Examination Osteopathic Statement: *. No significant issues noted on an osteopathic structural exam other than those noted in the History and Physical/Consult.
[2023-07-24] MEDS ORDERED: LIDOCAINE 1% (10MG/ML) FOR IV START INTRADERMA PRN (06:27)
[2023-07-24] MEDS ORDERED: ONDANSETRON 4 MG/2 ML VIAL IVP ONE (06:27)
[2023-07-24] MEDS ORDERED: LACTATED RINGERS 1,000 ML IV SCH (06:27)
[2023-07-24 07:00] LABS: Glucose,Whole Blood 184 mg/dL (70-110)
[2023-07-24] MEDS ORDERED: HYDROmorphone 0.5 MG/0.5 ML SYRINGE IVP PRN (07:00)
[2023-07-24 07:04] VITALS: TEMP 98
[2023-07-24] MEDS ORDERED: BUPIVACAINE (PF) 0.5% 30 ML VIAL SQ ONE ×2 (07:17→07:34)
[2023-07-24] MEDS ORDERED: LIDOCAINE 2% INJ 20 MG/ML SQ ONE ×2 (07:18→07:34)
[2023-07-24] MEDS ORDERED: KETAMINE HCL IN 0.9 % NACL 50 MG/5 ML SYRINGE ONE (07:27)
[2023-07-24] MEDS ORDERED: fentaNYL (PF) 50 MCG/ML 2 ML AMP ONE (07:27)
[2023-07-24] MEDS ORDERED: PROPOFOL 10 MG/ML 20 ML VIAL IV ONE (07:27)
[2023-07-24] MEDS ORDERED: MIDAZOLAM 2 MG/2 ML VIAL ONE (07:27)
--- NOTE | 2023-07-24 07:50 | P.OP ---
Date of Procedure: 07/24/23 Preoperative Diagnosis: Right ring finger trigger finger Postoperative Diagnosis: Right ring finger trigger finger Procedure(s) Performed: Right ring finger A1 amilcar release Anesthesia: MAC Surgeon: Corbin Mart [employer] Officer #1: Dawit Phipps Estimated Blood Loss (ml): 0 Pathology: none sent Condition: stable Disposition: PACU Description of Procedure: This is a 58 year old male who presents today for a right ring finger trigger finger A1 amilcar release after having failed conservative treatment. Risks and benefits of surgery were discussed with the patient including bleeding, damage to surrounding tissue, infection, need for further surgery as well as risks of anesthesia including pulmonary embolism and even and the patient wished to proceed with surgical intervention. The patient was seen in the pre-operative area by myself. Consent and H&P were completed and updated. The correct extremity was marked in the pre-operative area by myself and all other questions were answered. Operative Narrative: The patient was brought to the operating room by the department of anesthesia. They remained on the portable stretcher and a rolling hand table was brought to the side of the operative extremity. Pre-operative time out was performed indicating the correct patient, procedure and laterality. All in the room agreed. Pre-operative antibiotics were given prior to skin incision. The patient was then drifted off to sleep by the department of anesthesia. MAC anesthesia was utilized and a 50:50 mixture of 1% Lidocaine and 0.5% bupivacaine was injected into the subcutaneous tissues of the palmar skin, 6ccs total. A nonsterile tourniquet was then applied to the operative extremity and the right upper extremity was then prepped and draped in normal sterile fashion. The operative extremity was the exsanguinated with an esmarch bandage and the tourniquet was inflated to 250mmHg. Oblique incision was made at the base of the right ring finger finger. Blunt dissection was taken down to the level of the A1 amilcar. Ragnell retractors were placed both radially and ulnarly to protect neurovascular bundles. Littler tenotomy scissors were then used to release the A1 amilcar from proximal to distal under direct visualization. Proximal fascial attachments were released. The tendon was then taken through range of motion and no locking or catching was appreciated. The wound was then closed with interrupted 4-0 nylon sutures in a horizontal mattress fashion. Sterile dressing consisting of adaptic, 4x4s, webril, and an marito wrap was applied. Tourniquet was let down and the hand was immediately well perfused. The patient was then woken by the department of anesthesia and transferred to PACU in stable condition. Dawit CARTER was present to assist in major portions of the procedure. Corbin Mart D.O. Orthopedic Hand/Upper Extremity Surgeon
[2023-07-24 08:06] VITALS: RESP 16
[2023-07-24 08:36] VITALS: BP 102/69; PULSE 67
== END 2023-07-24 08:35 | disposition home or self-care (01) ==
LOC: OR 06:00
PROVIDERS: ATTEND Orthopaedic Surgery Hand Surgery
DX: M65.341 Trigger finger, right ring finger (principal); I25.10 Atherosclerotic heart disease of native coronary artery without angina pectoris; I10 Essential (primary) hypertension; E11.9 Type 2 diabetes mellitus without complications; E78.5 Hyperlipidemia, unspecified; G47.33 Obstructive sleep apnea (adult) (pediatric); J44.9 Chronic obstructive pulmonary disease, unspecified; F41.9 Anxiety disorder, unspecified; F17.210 Nicotine dependence, cigarettes, uncomplicated; Z79.1 Long term (current) use of non-steroidal anti-inflammatories (NSAID); Z79.51 Long term (current) use of inhaled steroids; Z79.4 Long term (current) use of insulin; Z79.82 Long term (current) use of aspirin; Z79.84 Long term (current) use of oral hypoglycemic drugs; Z79.899 Other long term (current) drug therapy; Z91.040 Latex allergy status; Z86.73 Personal history of transient ischemic attack (TIA), and cerebral infarction without residual deficits; Z98.890 Other specified postprocedural states
CPT/HCPCS: 26055; J2001; J2250; J0690; J2405; J3010; J2704; J0665

== ENCOUNTER 2025-02-17 10:36 | Observation (INO) | payer OTHER, MEDICARE ==
[2025-02-17] MEDS: MECLIZINE 12.5 MG TAB PO STA (11:46)
[2025-02-17] MEDS: SODIUM CHLORIDE 0.9% 1,000 ML IV STA (11:46)
[2025-02-17 11:53] LABS: Basophils # (A) 0.07 10*3/uL (0.00-0.10); Basophils % (A) 0.8 %; Eosinophils # (A) 0.56 10*3/uL (0.04-0.35); HCT 50.7 % (39.6-50.0); HGB 17.3 g/dL (13.0-17.0); Lymphocytes # (A) 2.72 10*3/uL (0.90-5.00); Lymphocytes % (A) 29.3 %; MCH 29.9 pg (27.0-32.0); MCHC 34.1 g/dL (32.0-37.0); MCV 87.6 fL (80.0-97.0); Mean Platelet Volume 10.2 fL (9.5-12.2); Monocytes # (A) 0.95 10*3/uL (0.20-1.00); Monocytes % (A) 10.2 %; Neutrophils # (A) 4.95 10*3/uL (1.80-7.70); Neutrophils % (A) 53.3 %; Platelet Count 160 10*3/uL (140-440); RBC 5.79 10*6/uL (4.40-5.60); RDW 13.2 % (11.5-14.5); WBC 9.29 10*3/uL (4.50-10.00)
[2025-02-17 12:02] LABS: Appearance,Urine Clear (Clear); Bilirubin,Urine Negative (Negative); Blood,Urine Negative (Negative); Color,Urine Colorless; Glucose,Urine (UA) 4+ (Negative); Ketones,Urine Negative (Negative); Leukocyte Esterase,Urine Negative (Negative); Nitrite,Urine Negative (Negative); Protein,Urine Negative (Negative); Specific Gravity,Urine 1.023 (1.001-1.035); Urobilinogen,Urine <2.0 mg/dL (<2.0)
[2025-02-17 12:04] LABS: ALT 35 U/L (4-49); AST 29 U/L (17-59); African American GFR (CKD) >90 (>60 ml/min/1.73 sqM); Albumin 4.5 g/dL (3.5-5.0); Alkaline Phosphatase 97 U/L (38-126); Anion Gap 10 mmol/L; Blood Urea Nitrogen 16 mg/dL (9-20); Calcium 9.7 mg/dL (8.4-10.2); Carbon Dioxide 26 mmol/L (22-30); Chloride 102 mmol/L (98-107); Glucose 133 mg/dL (74-99); Non-African American GFR(CKD) >90 (>60 ml/min/1.73 sqM); Potassium 3.6 mmol/L (3.5-5.1); Sodium 138 mmol/L (137-145); Total Bilirubin 0.7 mg/dL (0.2-1.3); Total Protein 6.9 g/dL (6.3-8.2)
[2025-02-17 12:08] LABS: Prothrombin Time 10.9 sec (10.0-12.5)
[2025-02-17 12:29] LABS: Influenza A Not Detected (Not Detectd); Influenza B Not Detected (Not Detectd); RSV Not Detected (Not Detectd)
--- NOTE | 2025-02-17 12:52 | XR ---
EXAMINATION TYPE: XR chest 2V DATE OF EXAM: 02/17/2025 12:20 PM COMPARISON: 04/20/2018 CLINICAL INDICATION: Male, 59 years old with history of syncope, TECHNIQUE: XR chest 2V view(s) obtained. FINDINGS: The heart size is normal. The pulmonary vasculature is upper limits for normal. The lungs are clear. IMPRESSION: 1. No acute pulmonary process. [facility], , 02/17/2025 12:49 PM
--- NOTE | 2025-02-17 12:53 | CT ---
EXAMINATION TYPE: CT brain wo con DATE OF EXAM: 02/17/2025 12:42 PM COMPARISON: 04/20/2018 CLINICAL INDICATION: Male, 59 years old with history of syncope, VERTIGO TECHNIQUE: CT of the brain is performed utilizing 3 mm thick sections through the posterior fossa and 3 mm thick sections through the remaining calvarium. Study is performed within 24 hours of arrival to the hospital. Contrast used: mL of , (none if empty) CT DLP: 1145 mGycm, Automated exposure control for dose reduction was used. FINDINGS: No abnormal hyperdensity is present to suggest an acute intracranial hemorrhage. No mass lesion is evident. No acute infarcts are evident. Some mild hypodensities within the periventricular white matter, likel y on the basis of chronic white matter ischemic changes. No significant interval change is evident. Ventricles and sulci are appropriate for the patient age. Paranasal sinuses and mastoid air cells within the [id number] are clear. IMPRESSION: 1. No acute intracranial process. Follow up MRI can be performed as clinically indicated. 2. Mild stable chronic appearing periventricular white matter ischemic type changes [facility], , 02/17/2025 12:51 PM
--- NOTE | 2025-02-17 12:59 | CT ---
EXAMINATION TYPE: CT angio head neck DATE OF EXAM: 02/17/2025 12:42 PM COMPARISON: None. CLINICAL INDICATION: Male, 59 years old with history of vertigo, VERTIGO TECHNIQUE: CTA scan is performed with axial images are obtained, coronal and sagittal reformatted thierno ges are reviewed. MIP images created on a separate workstation and submitted for review. 3-D reconstr ucted images are created on an independent workstation and reviewed. Source images are reviewed. XIAO CET criteria was used in interpretation of this exam? Contrast used:65 ML mL of Isovue 370 with IV Contrast, (none if empty) Oral contrast used: (none if empty) CT DLP: 692.1 mGycm, Automated exposure control for dose reduction was used. FINDINGS: Carotid/Vascular Structures: There is a 3 vessel arch. Common carotid arteries bifurcate into internal and external carotid arteries without significant mary w limiting stenosis. Vertebral arteries are codominant. Internal carotid arteries and vertebral arteries are patent to the skull base. Cervical of [place]: Vertebral basilar system appears normal. Posterior cerebral vasculature is unrema rkable. Internal carotid arteries bifurcate normally into A1 and M1 segments. A2 segments are normal. The anterior communicating artery is patent. The right posterior communicating artery is identified. The left posterior communicating artery is patent. Other: Right lobe thyroid is heterogenous. Mild hypodensities are within the left pleural scarring. F ollow-up thyroid ultrasound can be performed as clinically indicated. IMPRESSION: 1. No flow-limiting stenosis bilateral carotid bifurcations. 2. Normal [place]q of [place]. 3. Heterogenous thyroid. Follow-up ultrasound can be performed as clinically indicated. [facility], , 02/17/2025 12:57 PM
[2025-02-17] MEDS ORDERED: ALBUTEROL NEBULIZED 2.5 MG/3 ML INHALATION PRN (14:06)
[2025-02-17] MEDS ORDERED: NALOXONE 0.4 MG/ML 1 ML VIAL IV PRN (14:25)
[2025-02-17] MEDS ORDERED: ONDANSETRON 4 MG/2 ML VIAL IVP PRN (14:25)
--- NOTE | 2025-02-17 14:25 | ED ---
General Adult HPI - General Chief complaint: Neuro Symptoms/Deficit Stated complaint: Vision Issues/Headache Time Seen by Provider: 02/17/25 11:20 Source: patient, RN notes reviewed, old records reviewed Mode of arrival: ambulatory Limitations: no limitations - History of Present Illness Initial comments: 59-year-old male who presents emergency department complaining of double vision and a mild headache. Also is feeling lightheaded. Has been ongoing for the last 2 days. No changes. Double vision seems to be more the right eye than the left. Does have a history of prior CVA with residual right-sided facial droop. Denies any eye pain. Denies any cough, congestion. Denies any chest pain or shortness of breath. Denies any fevers or chills or cough. Denies any abdominal pain, nausea, vomiting. No other acute complaints at this time. Presents for further evaluation at this time.Denies any head trauma. Is not on blood thinners. - Related Data Home Medications Medication Instructions Recorded Confirmed Meloxicam [Mobic] 15 mg PO DAILY 03/01/17 07/24/23 Atorvastatin [Lipitor] 80 mg PO HS 04/21/18 07/24/23 Budesonide/Formoterol Fumarate 2 puff INHALATION RT-BID 04/21/18 07/22/23 [Symbicort 80-4.5 Mcg Inhaler] Cholecalciferol (Vitamin D3) 2,000 unit PO DAILY 04/21/18 07/22/23 [Vitamin D3] Hydrocodone/Acetaminophen [[place] 1 tab PO TID PRN 04/21/18 07/24/23 10-325] Metoprolol Tartrate [Lopressor] 100 mg PO BID 04/21/18 07/24/23 Nitroglycerin Sl Tabs [Nitrostat] 0.4 mg SUBLINGUAL Q5M PRN 04/21/18 07/24/23 Insulin Aspart [NovoLOG] 60 unit SQ TID-W/MEALS 12/19/21 07/24/23 Insulin Glargine (Lantus) [Lantus 50 unit SQ HS 12/19/21 07/24/23 Vial] Isosorbide Mononitrate ER [Imdur] 30 mg PO QAM 12/19/21 07/24/23 PARoxetine HCL [Paxil Cr] 50 mg PO QAM 12/19/21 07/24/23 lisinopriL [Zestril] 10 mg PO QAM 12/19/21 07/24/23 Empagliflozin [Jardiance] 25 mg PO DAILY 07/22/23 07/24/23 Previous Rx's Medication Instructions Recorded Albuterol Nebulized [Ventolin 2.5 mg INHALATION RT-QID PRN #120 06/28/17 Nebulized] nebu Aspirin 81 mg PO DAILY 30 Days #30 chew 06/28/17 Montelukast [Singulair] 10 mg PO HS 30 Days #30 tab 06/28/17 Allergies Allergy/AdvReac Type Severity Reaction Status Date / Time latex Allergy Rash/Hives Verified 02/17/25 10:42 Review of Systems ROS Statement: Those systems with pertinent positive or pertinent negative responses have been documented in the HPI. Review of Systems: CONST: Denies fever EYES: Endorses right eye double vision ENT: Denies nasal congestion C/V: Denies Chest pain RESP: Denies shortness of breath GI: Denies abdominal pain : Denies dysuria SKIN: Denies rash. MSK: Denies joint pain. NEURO: Endorses mild headache ROS Other: All systems not noted in ROS Statement are negative. Past Medical History Past Medical History: Coronary Artery Disease (CAD), Chest Pain / Angina, CVA/TIA, Diabetes Mellitus, Hyperlipidemia, Hypertension, Sleep Apnea/CPAP/BIPAP Additional Past Medical History / Comment(s): IDDM.Backpain, pt stateed"va told me i have l4-l5 fx. Asbestos exposure while in [employer]. 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 DOES NOT USE CPAP. History of Any Multi-Drug Resistant Organisms: None Reported Past Surgical History: Appendectomy, Heart Catheterization Additional Past Surgical History / Comment(s): il shoulder sx x2. Rt knee ARTHROSCOPY Past Anesthesia/Blood Transfusion Reactions: No Reported Reaction Past Psychological History: Anxiety Smoking Status: Current every day smoker Past Alcohol Use History: None Reported Past Drug Use History: None Reported - Past Family History Mother Family Medical History: Hypertension Additional Family Medical History / Comment(s): hiatal hernia, "heart problems" Father Family Medical History: Hypertension General Exam - General Exam Comments Initial Comments: General: Appears in no acute distress. HEAD: Normal with no signs of head trauma. EYES: PERRLA, EOMI, conjunctiva normal, no discharge. Pupils appear to be 3 mm and equal bilaterally. Right eye diplopia. Visual acuity is 20/40 bilaterally, 20/70 in the right eye and 20/40 in the left eye ENT: Hearing grossly intact, normal oropharynx. RESPIRATORY: Clear breath sounds bilaterally. No wheezes, rales, or rhonchi. C/V: Regular rate and rhythm. S1 and S2 auscultated, no edema, peripheral pulses 2+ and intact throughout ABD: Abd is soft, nontender, nondistended EXT: Normal range of motion, no obvious deformity SKIN: No rashes or lesions observed on exposed skin. NEURO: Alert and oriented x 4. Cranial nerves II-XII intact. No focal sensory or strength deficits. NIH of 0 for acute complaints. Chronic right-sided fa cial droop present. Limitations: no limitations Course Vital Signs 02/17/25 02/17/25 02/17/25 10:38 11:54 13:57 Temperature 97.9 F Pulse Rate 81 78 68 Respiratory 18 16 18 Rate Blood Pressure 172/94 116/80 154/100 O2 Sat by Pulse 97 98 97 Oximetry Medical Decision Making - Medical Decision Making Was pt. sent in by a medical professional or institution (, PA, LIP CUTTER, urgent care, hospital, or [facility]...) When possible be specific @ -No Did you speak to anyone other than the patient for history (EMS, parent, family, police, friend...)? What history was obtained from this source @ -No Did you review nursing and triage notes (agree or disagree)? Why? @ -I reviewed and agree with nursing and triage notes Were old charts reviewed (outside hosp., previous admission, EMS record, old EKG, old radiological studies, urgent care reports/EKG's, [facility] records)? Report findings @ -No old charts were reviewed Differential Diagnosis (chest pain, altered mental status, abdominal pain women, abdominal pain men, vaginal bleeding, weakness, fever, dyspnea, syncope, headache, dizziness, GI bleed, back pain, seizure, CVA, palpatations, mental health, musculoskeletal)? @ -CVA, headache, complex migraine, diplopia. This list is not all-inclusive. EKG interpreted by me (3pts min.). @ -As above X-rays interpreted by me (1pt min.). @ -Chest x-ray reveals no obvious acute cardiopulmonary process. CT interpreted by me (1pt min.). @ -CT brain and CT angiogram head and neck negative for any obvious acute process. Thyroid does appear to be heterogeneous and they recommend follow-up ultrasound. U/S interpreted by me (1pt. min.). @ -None done What testing was considered but not performed or refused? (CT, X-rays, U/S, labs)? Why? @ -None What meds were considered but not given or refused? Why? @ -None Did you discuss the management of the patient with other professionals (professionals i.e. , PA, LIP CUTTER, lab, RT, psych nurse, social work nurse, parish visitor, teacher, education officer, case operator)? Give summary @ -Discussed with the admitting provider, Dr. Lemus of [facility] who accepted the admission. Was smoking cessation discussed for >3mins.? @ -No Was critical care preformed (if so, how long)? @ -No Were there social determinants of health that impacted care today? How? (Homelessness, low income, unemployed, alcoholism, drug addiction, transportation, low edu. Level, literacy, decrease access to med. care, halfway, rehab)? @ -No Was there de-escalation of care discussed even if they declined (Discuss DNR or withdrawal of care, Hospice)? DNR status @ -No What co-morbidities impacted this encounter? (DM, HTN, Smoking, COPD, CAD, Cancer, CVA, ARF, Chemo, Hep., AIDS, mental health diagnosis, sleep apnea, morbid obesity)? @ -None Was patient admitted / discharged? Hospital course, mention meds given and route, prescriptions, significant lab abnormalities, going to OR and other pertinent info. @ -Patient presents for lightheadedness/diplopia with a headache. We will obtain CT imaging of the brain and neck as well as general workup. Symptoms ongoing for 2 days. NIH is 0. Vitals within acceptable limits. He was in agreement this plan. EKG shows no signs of acute ischemia. Imaging negative for any obvious acute process. Patient does have a heterogeneous thyroid and they recommended follow- up ultrasound. Labs are unremarkable as well including undetectable troponin. 4+ glucose in the urine. I updated the patient. He is still symptomatic. Patient will be admitted with neurology consult. He was in agreement this plan. I spoke with the admitting provider, Dr. Lemus who accepted the admission. Undiagnosed new problem with uncertain prognosis? @ -No Drug Therapy requiring intensive monitoring for toxicity (Heparin, Nitro, Insulin, Cardizem)? @ -No Were any procedures done? @ -No Diagnosis/symptom? @ -Double vision, lightheadedness Acute, or Chronic, or Acute on Chronic? @ -Acute Uncomplicated (without systemic symptoms) or Complicated (systemic symptoms)? @ -Complicated Side effects of treatment? @ -No Exacerbation, Progression, or Severe Exacerbation? @ -No Poses a threat to life or bodily function? How? (Chest pain, USA, MD, pneumonia, PE, COPD, DKA, ARF, appy, cholecystitis, CVA, Diverticulitis, Homicidal, Tasia cidal, threat to staff... and all critical care pts) @ -Potentially, yes - Lab Data Result diagrams: 02/17/25 11:42 02/17/25 11:42 Lab Results 02/17/25 02/17/25 02/17/25 Range/Units 11:42 11:42 11:42 WBC 9.29 (4.50-10.00) 10*3/uL RBC 5.79 H (4.40-5.60) 10*6/uL Hgb 17.3 H (13.0-17.0) g/dL Hct 50.7 H (39.6-50.0) % MCV 87.6 (80.0-97.0) fL MCH 29.9 (27.0-32.0) pg MCHC 34.1 (32.0-37.0) g/dL Plt Count 160 (140-440) 10*3/uL MPV 10.2 (9.5-12.2) fL Immature Gran % (Auto) 0.4 % Neutrophils % 53.3 % Lymphocytes % 29.3 % Monocytes % 10.2 % Eosinophils % 6.0 % Basophils % 0.8 % Immature Gran # 0.04 (0.00-0.04) 10*3/uL Neutrophils # 4.95 (1.80-7.70) 10*3/uL Lymphocytes # 2.72 (0.90-5.00) 10*3/uL Monocytes # 0.95 (0.20-1.00) 10*3/uL Eosinophils # 0.56 H (0.04-0.35) 10*3/uL Basophils # 0.07 (0.00-0.10) 10*3/uL PT 10.9 (10.0-12.5) sec INR 1.0 (<1.2) APTT 25.0 (22.0-30.0) sec Sodium 138 (137-145) mmol/L Potassium 3.6 (3.5-5.1) mmol/L Chloride 102 (98-107) mmol/L Carbon Dioxide 26 (22-30) mmol/L Anion Gap 10 mmol/L BUN 16 (9-20) mg/dL Creatinine 0.50 L (0.66-1.25) mg/dL Est GFR (CKD-EPI)AfAm >90 (>60 ml/min/1.73 sqM) Est GFR (CKD-EPI)NonAf >90 (>60 ml/min/1.73 sqM) Glucose 133 H (74-99) mg/dL Calcium 9.7 (8.4-10.2) mg/dL Magnesium 2.0 (1.6-2.3) mg/dL Total Bilirubin 0.7 (0.2-1.3) mg/dL AST 29 (17-59) U/L ALT 35 (4-49) U/L Alkaline Phosphatase 97 (38-126) U/L Troponin I (0.000-0.034) ng/mL Total Protein 6.9 (6.3-8.2) g/dL Albumin 4.5 (3.5-5.0) g/dL Urine Color Urine Appearance (Clear) Urine pH (5.0-8.0) Ur Specific [place] (1.001-1.035) Urine Protein (Negative) Urine Glucose (UA) (Negative) Urine Ketones (Negative) Urine Blood (Negative) Urine Nitrite (Negative) Urine Bilirubin (Negative) Urine Urobilinogen (<2.0) mg/dL Ur Leukocyte Esterase (Negative) Influenza Type A (PCR) (Not Detectd) Influenza Type B (PCR) (Not Detectd) RSV (PCR) (Not Detectd) SARS-CoV-2 (PCR) (Not Detectd) 06/25/25 06/25/25 06/25/25 Range/Units 11:42 11:42 11:53 WBC (4.50-10.00) 10*3/uL RBC (4.40-5.60) 10*6/uL Hgb (13.0-17.0) g/dL Hct (39.6-50.0) % MCV (80.0-97.0) fL MCH (27.0-32.0) pg MCHC (32.0-37.0) g/dL Plt Count (140-440) 10*3/uL MPV (9.5-12.2) fL Immature Gran % (Auto) % Neutrophils % % Lymphocytes % % Monocytes % % Eosinophils % % Basophils % % Immature Gran # (0.00-0.04) 10*3/uL Neutrophils # (1.80-7.70) 10*3/uL Lymphocytes # (0.90-5.00) 10*3/uL Monocytes # (0.20-1.00) 10*3/uL Eosinophils # (0.04-0.35) 10*3/uL Basophils # (0.00-0.10) 10*3/uL PT (10.0-12.5) sec INR (<1.2) APTT (22.0-30.0) sec Sodium (137-145) mmol/L Potassium (3.5-5.1) mmol/L Chloride (98-107) mmol/L Carbon Dioxide (22-30) mmol/L Anion Gap mmol/L BUN (9-20) mg/dL Creatinine (0.66-1.25) mg/dL Est GFR (CKD-EPI)AfAm (>60 ml/min/1.73 sqM) Est GFR (CKD-EPI)NonAf (>60 ml/min/1.73 sqM) Glucose (74-99) mg/dL Calcium (8.4-10.2) mg/dL Magnesium (1.6-2.3) mg/dL Total Bilirubin (0.2-1.3) mg/dL AST (17-59) U/L ALT (4-49) U/L Alkaline Phosphatase (38-126) U/L Troponin I <0.012 (0.000-0.034) ng/mL Total Protein (6.3-8.2) g/dL Albumin (3.5-5.0) g/dL Urine Color Colorless Urine Appearance Clear (Clear) Urine pH 6.0 (5.0-8.0) Ur Specific [place] 1.023 (1.001-1.035) Urine Protein Negative (Negative) Urine Glucose (UA) 4+ H (Negative) Urine Ketones Negative (Negative) Urine Blood Negative (Negative) Urine Nitrite Negative (Negative) Urine Bilirubin Negative (Negative) Urine Urobilinogen <2.0 (<2.0) mg/dL Ur Leukocyte Esterase Negative (Negative) Influenza Type A (PCR) Not Detected (Not Detectd) Influenza Type B (PCR) Not Detected (Not Detectd) RSV (PCR) Not Detected (Not Detectd) SARS-CoV-2 (PCR) Not Detected (Not Detectd) - EKG Data -: EKG Interpreted by Me EKG Comments: 12-lead Electrocardiogram Interpretation Note EKG was reviewed and interpreted by myself. 12-lead ECG performed at 1048 is in terpreted by me as revealing normal sinus rhythm at a rate of 76 beats per minute. [place] is normal. AR interval is 169 ms, QRS duration is 106 ms, QTc is 3 [address] ms. There were no ST or T wave abnormalities to suggest myocardial ischemia or injury. R wave progression across the precordium was satisfactory. By my interpretation this EKG is non-diagnostic for acute ischemia. Disposition Clinical Impression: Double vision, Lightheadedness Disposition: ADMITTED IP TO THIS HOSP Condition: Stable Referrals: Guillaume Casiano DO [Primary Care Provider] - 1-2 days Time of Disposition: 13:30
[2025-02-17] MEDS ORDERED: diphenhydrAMINE 50 MG/ML 1 ML VIAL IVP PRN (14:50)
[2025-02-17] MEDS: KETOROLAC 15 MG/ML 1 ML VIAL IVP STA (15:01)
[2025-02-17] MEDS: diphenhydrAMINE 50 MG/ML 1 ML VIAL IVP STA (15:03)
[2025-02-17] MEDS: ONDANSETRON 4 MG/2 ML VIAL IVP STA (15:03)
[2025-02-17] MEDS ORDERED: MORPHINE SULFATE 2 MG/ML SYRINGE IVP PRN (15:48)
[2025-02-17] MEDS ORDERED: DEXTROSE 50% SYRINGE 50 ML IVP PRN ×2 (15:49)
--- NOTE | 2025-02-17 17:10 | P.HPIM ---
History of Present Illness H&P Date: 02/17/25 59 year old M with PMH COPD, CVA with right sided facial paralysis, DM, HTN, Depression presents to the ED for diplopia that spontaneously started 3 days ago. Associated symptoms including stabbing pain in his left eye. He reports feeling off-balance. 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 He denies any slurred speech, confusion, difficulty swallowing, numbness/weakness/tingling of the extremities. No nausea or vomiting. No fever or chills. In the ED he underwent extensive evaluation. BP 172/94, HR 81, T 97.9F, RR 18, 97% on RA. CBC, Coag panel, CMP significant for RBC 5.79, Hg 17.3, Hct 50.7, Cr 0.5, glu 133. Mag 2. Trop < 0.012. UA 4+ glucose. COVID, RSV, Flu neg. CT brain and CTA head and neck no acute process. CXR no acute process. EKG sinus rhythm with no ST-T wave changes. Patient is admitted for further workup and management. General: non toxic, no distress, appears at stated age Derm: warm, dry Head: atraumatic, normocephalic, symmetric Eyes: EOMI, no lid lag, anicteric sclera Mouth: no lip lesion, mucus membranes moist Cardiovascular: S1S2 reg, no murmur Lungs: Decreased BS bilateral, no rhonchi, no rales , no accessory muscle use Ext: no gross muscle atrophy, no edema, no contractures Neuro: CN II-XII grossly intact besides R facial droop. Strength and sensation intact in all 4 extremities Psych: Alert, oriented, appropriate affect Based on my assessment of this patient, this patient meets a high complexity level of care. Diplopia with Ophthalmalgia: Obtain MRI brain + orbit with contrast. Obtain ESR/CRP. Obtain Echo, A1c, Lipid panel. Neurochecks. Telemetry monitoring. PT/OT/ST consult. Neurology consultation. COPD: Albuterol neb QID PRN SOB. Symbicort 2 INH BID. Singulair 10 mg PO QHS. CVA with right sided facial paralysis: ASA 81 mg PO QD. Lipitor 80 mg PO QHS. DM: Obtain A1c. Farxiga 10 mg PO QD. Novolog 30 units TID. Levemir 60 units QHS. ISS + Accuchecks ACHS. Hypoglycemic precautions. HTN: Imdur 30 mg PO QD. Lisinopril 10 mg PO QD. Depression: Paxil 40 mg PO QD. Nicotine abuse: Nicotine patch 21 mg QD. CODE STATUS: FULL CODE DVT Prophylaxis: Lovenox SQ GI Prophylaxis: Designated medical POA if patient is not able to make medical decisions for themselves: . I have reviewed the following help desk consultant notes: ED note. I have reviewed the results of the following tests: As above. I have ordered the following tests: As above. I have discussed the care of this patient with the following independent historian: I have independently interpreted the following test below: EKG I have discussed the management of this patient with the following physician: ER provider Past Medical History Past Medical History: Coronary Artery Disease (CAD), Chest Pain / Angina, CVA/TIA, Diabetes Mellitus, Hyperlipidemia, Hypertension, Sleep Apnea/CPAP/BIPAP Additional Past Medical History / Comment(s): IDDM.Backpain, pt stateed"va told me i have l4-l5 fx. Asbestos exposure while in [employer]. 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 DOES NOT USE CPAP. History of Any Multi-Drug Resistant Organisms: None Reported Past Surgical History: Appendectomy, Heart Catheterization Additional Past Surgical History / Comment(s): il shoulder sx x2. Rt knee ARTHROSCOPY Past Anesthesia/Blood Transfusion Reactions: No Reported Reaction Past Psychological History: Anxiety Smoking Status: Current every day smoker Past Alcohol Use History: None Reported Past Drug Use History: None Reported - Past Family History Mother Family Medical History: Hypertension Additional Family Medical History / Comment(s): hiatal hernia, "heart problems" Father Family Medical History: Hypertension Medications and Allergies Home Medications Medication Instructions Recorded Confirmed Type Meloxicam [Mobic] 15 mg PO DAILY 03/01/17 07/24/23 History Albuterol Nebulized [Ventolin 2.5 mg INHALATION RT-QID PRN #120 06/28/17 07/24/23 Rx Nebulized] nebu Aspirin 81 mg PO DAILY 30 Days #30 chew 06/28/17 07/24/23 Rx Montelukast [Singulair] 10 mg PO HS 30 Days #30 tab 06/28/17 07/24/23 Rx Atorvastatin [Lipitor] 80 mg PO HS 04/21/18 07/24/23 History Budesonide/Formoterol Fumarate 2 puff INHALATION RT-BID 04/21/18 07/22/23 History [Symbicort 80-4.5 Mcg Inhaler] Cholecalciferol (Vitamin D3) 2,000 unit PO DAILY 04/21/18 07/22/23 History [Vitamin D3] Hydrocodone/Acetaminophen [[place] 1 tab PO TID PRN 04/21/18 07/24/23 History 10-325] Metoprolol Tartrate [Lopressor] 100 mg PO BID 04/21/18 07/24/23 History Nitroglycerin Sl Tabs [Nitrostat] 0.4 mg SUBLINGUAL Q5M PRN 04/21/18 07/24/23 Hi story Insulin Aspart [NovoLOG] 60 unit SQ TID-W/MEALS 12/19/21 07/24/23 History Insulin Glargine (Lantus) [Lantus 50 unit SQ HS 12/19/21 07/24/23 History Vial] Isosorbide Mononitrate ER [Imdur] 30 mg PO QAM 12/19/21 07/24/23 History PARoxetine HCL [Paxil Cr] 50 mg PO QAM 12/19/21 07/24/23 History lisinopriL [Zestril] 10 mg PO QAM 12/19/21 07/24/23 History Empagliflozin [Jardiance] 25 mg PO DAILY 07/22/23 07/24/23 History Allergies Allergy/AdvReac Type Severity Reaction Status Date / Time latex Allergy Rash/Hives Verified 02/17/25 10:42 Physical Exam Vitals: Vital Signs Temp Pulse Resp BP Pulse Ox 02/17/25 13:57 68 18 154/100 97 02/17/25 11:54 78 16 116/80 98 02/17/25 10:38 97.9 F 81 18 172/94 97 Intake and Output 02/16/25 02/17/25 02/17/25 22:59 06:59 14:59 Other: Weight 104.78 kg Results CBC & Chem 7: 02/17/25 11:42 02/17/25 11:42 Labs: Abnormal Lab Results - Last 24 Hours (Table) 02/17/25 02/17/25 02/17/25 Range/Units 11:42 11:42 11:53 RBC 5.79 H (4.40-5.60) 10*6/uL Hgb 17.3 H (13.0-17.0) g/dL Hct 50.7 H (39.6-50.0) % Eosinophils # 0.56 H (0.04-0.35) 10*3/uL Creatinine 0.50 L (0.66-1.25) mg/dL Glucose 133 H (74-99) mg/dL Urine Glucose (UA) 4+ H (Negative)
[2025-02-17 18:26] LABS: Glucose,Whole Blood 130 mg/dL (70-110)
[2025-02-17] MEDS: INSULIN LISPRO (HumaLOG) 100 UNIT/ML 10 mL VL SQ SCH ×2 (18:38→18:39)
[2025-02-17] MEDS: NICOTINE 21MG/24HR PATCH TRANSDERM SCH (18:54)
[2025-02-17] MEDS: HYDROcodone/APAP 10-325MG 1 EACH TAB PO PRN (18:58)
[2025-02-17] MEDS: SYMBICORT 80-4.5 MCG INHALER INHALATION SCH (20:12)
[2025-02-17] MEDS: MONTELUKAST 10 MG TAB PO SCH (20:41)
[2025-02-17] MEDS: ATORVASTATIN 80 MG TAB PO SCH (20:41)
[2025-02-17] MEDS: METOPROLOL TARTRATE 50 MG TAB PO SCH (20:42)
[2025-02-17 20:51] LABS: Glucose,Whole Blood 136 mg/dL (70-110)
[2025-02-17] MEDS: INSULIN GLARGINE (LANTUS) 100 UNIT/ML SYR SQ SCH (21:03)
[2025-02-18 06:26] LABS: Glucose,Whole Blood 78 mg/dL (70-110)
[2025-02-18 07:58] LABS: HCT 52.7 % (39.6-50.0); HGB 17.4 g/dL (13.0-17.0); MCH 30.3 pg (27.0-32.0); MCV 91.7 FL (80.0-97.0); Mean Platelet Volume 11.2 FL (9.5-12.2); NRBC Per 100 WBC 0 X 10*3/uL (0.00-0.01); Platelet Count 166 X 10*3/uL (140-440); RBC 5.75 X 10*6/uL (4.40-5.60); RDW 13.4 % (11.5-14.5); WBC 9.85 X 10*3/uL (4.50-10.00)
[2025-02-18 07:59] LABS: Basophils # (A) 0.09 X 10*3/uL (0.00-0.10); Basophils % (A) 0.9 %; Eosinophils # (A) 0.56 X 10*3/uL (0.04-0.35); Eosinophils % (A) 5.7 %; Lymphocytes # (A) 3.05 X 10*3/uL (0.90-5.00); Monocytes # (A) 1.03 X 10*3/uL (0.20-1.00); Monocytes % (A) 10.5 %; Neutrophils # (A) 5.07 X 10*3/uL (1.80-7.70); Neutrophils % (A) 51.4 %
[2025-02-18 08:04] LABS: ALT 38 U/L (10-49); AST 29 U/L (14-35); Albumin 4.3 g/dL (3.8-4.9); Albumin/Globulin Ratio 1.79 Ratio (1.60-3.17); Alkaline Phosphatase 95 U/L (41-126); Blood Urea Nitrogen 22.4 mg/dL (9.0-27.0); C Reactive Protein <0.30 mg/dL (0.00-0.80); Calcium 9.2 mg/dL (8.7-10.3); Carbon Dioxide 24.8 mmol/L (21.6-31.8); Chloride 103 mmol/L (96-109); Chol/HDL Ratio 3.47 Ratio; Globulin 2.4 g/dL (1.6-3.3); Glucose 103 mg/dL (70-110); LDL Cholesterol,Calculated 43.1 mg/dL (0.0-131.0); Sodium 139 mmol/L (135-145); Total Bilirubin 0.3 mg/dL (0.3-1.2); Total Protein 6.7 g/dL (6.2-8.2)
[2025-02-18 10:02] LABS: Erythrocyte Sedimentation Rate 3 mm/Hr (0-20)
[2025-02-18] MEDS: lisinopriL 10 MG TAB PO SCH (10:24)
[2025-02-18] MEDS: PARoxetine 20 MG TAB PO SCH (10:24)
[2025-02-18] MEDS: DAPAGLIFLOZIN PROPANEDIOL 10 MG TABLET PO SCH (10:25)
[2025-02-18] MEDS: ASPIRIN 81 MG PO SCH (10:25)
[2025-02-18] MEDS: ENOXAPARIN 40 MG/0.4 ML SYRINGE SQ SCH (10:25)
[2025-02-18] MEDS: ISOSORBIDE MONONITRATE ER 30 MG TAB.ER.24H PO SCH (10:25)
[2025-02-18 10:30] VITALS: TEMP 97.6
--- NOTE | 2025-02-18 11:29 | P.CNNES ---
History of Present Illness Consult date: 02/17/25 Requesting physician: Epifanio Wu Reason for Consult: diploplia, lightheadedness History of Present Illness: Patient is a 59-year-old right-handed male with history of hypertension, diabetes, hyperlipidemia came to the hospital today at 10:36 AM with new onset of diplopia. Patient states the symptoms started on Saturday late night (night before the last). He describes diplopia as when driving, he sees 1 laying straight in 1 [place] and goes off the road and it moves and then it feels like traffic incoming at him. Along with diplopia he also started having left frontal headache and also involves the occipital region. Once in a while he gets stabbing pain in the left eye. He describes the headache 6/10, although before medication it was 9/10. He also feels some photophobia. Denies any numbness or tingling slurred speech new facial droop or any focal symptoms in the extremities. He does have constant numbness and tingling in both hands in the median nerve distribution for last 7 to 8 months. He denies any loss of vision. Patient states he had transient episodes of vertigo as well. Yesterday he was going upstairs when he felt this vertigo, he had to stop and relax and episode lasted for 2 to 3 minutes and then passed. He had another episodes of vertigo today when he was walking from post office to his car and has to catch himself. He denies loss of memory. Vital signs on arrival blood pressure 172/94, which came down to 116/80. Pulse rate 81 temperature 97.9. Blood test shows normal WBC hemoglobin 17.3, platelets are normal. PT PTT normal, CMP normal. Troponin negative. UA negative. Influenza, RSV and coronavirus PCR negative. EKG showed sinus rhythm. Chest x-ray showed no acute pulm process CT head revealed no acute intracranial process. Mild stable chronic appearing periventricular white matter ischemic type changes. On my review, there is evidence of old lacunar infarct right thalamus. Patient has history of diabetes for 4 to 5 years and now it has got under control. He has hypertension, hyperlipidemia. Patient has history of smoking 1-1/2 pack/day for 45 years. Denies any alcohol or drug use. Patient states he has history of stroke 18 years ago, which affected right side of the face. 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 Home medications include aspirin 81 mg, Lipitor 40 mg, Mobic, [place], Imdur, Jardiance, insulin, lisinopril, gabapentin, baclofen, Paxil, vitamin D. Review of Systems All pertinent positive and negative review of systems mentioned in the HPI, ot herwise unremarkable. Past Medical History Past Medical History: Coronary Artery Disease (CAD), Chest Pain / Angina, CVA/TIA, Diabetes Mellitus, Hyperlipidemia, Hypertension, Sleep Apnea/CPAP/BIPAP Additional Past Medical History / Comment(s): IDDM.Backpain, pt stateed"va told me i have l4-l5 fx. Asbestos exposure while in [employer]. 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 DOES NOT USE CPAP. History of Any Multi-Drug Resistant Organisms: None Reported Past Surgical History: Appendectomy, Heart Catheterization Additional Past Surgical History / Comment(s): il shoulder sx x2. Rt knee ARTHROSCOPY Past Anesthesia/Blood Transfusion Reactions: No Reported Reaction Past Psychological History: Anxiety Smoking Status: Current every day smoker Past Alcohol Use History: None Reported Past Drug Use History: None Reported - Past Family History Mother Family Medical History: Hypertension Additional Family Medical History / Comment(s): hiatal hernia, "heart problems" Father Family Medical History: Hypertension Medications and Allergies Home Medications Medication Instructions Recorded Confirmed Type Meloxicam [Mobic] 15 mg PO DAILY 03/01/17 02/17/25 History Aspirin 81 mg PO DAILY 30 Days #30 chew 06/28/17 02/17/25 Rx Montelukast [Singulair] 10 mg PO HS 30 Days #30 tab 06/28/17 02/17/25 Rx Atorvastatin [Lipitor] 80 mg PO HS 04/21/18 02/17/25 History Hydrocodone/Acetaminophen [[place] 1 tab PO TID PRN 04/21/18 02/17/25 History 10-325] Isosorbide Mononitrate ER [Imdur] 30 mg PO QAM 12/19/21 02/17/25 History Empagliflozin [Jardiance] 25 mg PO DAILY 07/22/23 02/17/25 History Ascorbic Acid [Vitamin C] 250 mg PO DAILY 02/17/25 02/17/25 History Baclofen [Lioresal] 20 mg PO BID 02/17/25 02/17/25 History Cholecalciferol [Vitamin D3 (25 50 mcg PO DAILY 02/17/25 02/17/25 History Mcg = 1000 Iu)] Clotrimazole Cream [Lotrimin Cream] 1 applic TOPICAL BID 02/17/25 02/17/25 History Gabapentin 300 mg PO HS 02/17/25 02/17/25 History Insulin Aspart [NovoLOG Flexpen] 30 units SQ BID-W/MEALS 02/17/25 02/17/25 History Insulin Glargine,Hum.rec.anlog 40 units SQ DAILY 02/17/25 02/17/25 History [Lantus Solostar Pen] Lidocaine 4% Cream 1 applic TOPICAL DAILY 02/17/25 02/17/25 History Lisinopril-Hctz 10-12.5 mg 1 tab PO DAILY 02/17/25 02/17/25 History [Zestoretic 10-12.5] Loratadine [Claritin] 10 mg PO DAILY 02/17/25 02/17/25 History PARoxetine [Paxil] 50 mg PO DAILY 02/17/25 02/17/25 History Tretinoin [Tretinoin 0.05%] 1 applic TOPICAL DAILY 02/17/25 02/17/25 History Allergies Allergy/AdvReac Type Severity Reaction Status Date / Time amlodipine [From Norvasc] Allergy [facility] Verified 02/17/25 18:12 diclofenac Allergy [facility] Verified 02/17/25 18:12 latex Allergy Rash/Hives Verified 02/17/25 18:12 metformin Allergy [facility] Verified 02/17/25 18:12 pravastatin [From Pravachol] Allergy [facility] Verified 02/17/25 18:12 Physical Examination - Vital Signs Vital Signs: Vital Signs Temp Pulse Resp BP Pulse Ox 02/17/25 15:48 73 16 147/90 94 L 02/17/25 13:57 68 18 154/100 97 02/17/25 11:54 78 16 116/80 98 02/17/25 10:38 97.9 F 81 18 172/94 97 Intake and Output 02/17/25 02/17/25 02/17/25 06:59 14:59 22:59 Other: Weight 104.78 kg Patient is a middle-aged male, in no acute distress. Patient is alert awake oriented to time place and person. Speech and language functions are normal. Patient can name and repeat very well. No aphasia or dysarthria. Attention, concentration and fund of knowledge is adequate. On cranial nerve examination, pupils are equal, round and reacting to light, visual [place] are full on confrontation, with no neglect on double simultaneous stimulation. Extraocular muscles are intact with no nystagmus. He appears to have diplopia in the primary gaze and also with gaze looking to the left side but only in the horizontal plane and left lower side. There is no diplopia in the left upper gaze. There is no diplopia on the right side gaze (up or down for horizontal plane). He has right facial weakness which is chronic, peripheral type. His tongue protrudes to the midline. Palatal elevation and sensation normal, hearing and shoulder shrug normal, facial sensation normal. On muscle strength testing, there is no pronator drift and the strength is normal in arms and legs distally and proximally. Deep tendon reflexes are symmetric but very diminished and plantars downgoing. Sensory to touch is equal with no neglect on double simultaneous stimulation. Cerebellar function showed no ataxia for [id number] testing. No dysdiadochokinesia. No ataxia for [id number] testing on either side. Tone and bulk of muscles normal. Gait deferred.. On general examination, there is no carotid bruit or murmur, S1-S2 audible. Chest is clear on consultation. Abdomen is soft nontender. No organomegaly, bowel sounds present. Peripheral pulses are present. No peripheral edema. 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 Doubt CVA. * Two episodes of transient vertigo, that resolved in 2 to 3 minutes each. * Hypertension * Diabetes * Hyperlipidemia * Tobacco use * History of chronic right facial weakness for last 18 years Plan: * Patient undergoing MRI of the brain with and without contrast and MRI of the orbits. * Continue aspirin 81 mg daily. * CTA of head and neck revealed no flow-limiting stenosis bilateral carotid bifurcations. Normal north fork of [place]. Heterogeneous thyroid. We will defer to IM to address thyroid. * ESR 3, CRP <0.30, both normal. Unlikely temporal arteritis. * Hemoglobin A1c * Lipid panel with cholesterol 108, LDL 43, HDL 31, triglycerides 169. Continue Lipitor 80 mg daily. 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 * Neurology will follow. Thank you for the consult.
--- NOTE | 2025-02-18 13:08 | P.DS ---
Providers Date of admission: 02/17/25 14:27 Expected date of discharge: 02/18/25 Attending physician: Lizandro Lemus MD Consults: 02/17/25 14:25 Consult Physician Routine Consulting Provider: Abel Alvarado Consult Reason/Comments: diploplia, lightheadedness Do you want consulting provider notified?: Yes Primary care physician: [facility] Course: 59 year old M with PMH COPD, CVA with right sided facial paralysis, DM, HTN, Depression presents to the ED for diplopia that spontaneously started 3 days ago. Associated symptoms including stabbing pain in his left eye. He reports feeling off-balance. Wears glasses, last Patient Admitting Clerk appointment last year. He denies any slurred speech, confusion, difficulty swallowing, numbness/weakness/tingling of the extremities. No nausea or vomiting. No fever or chills. In the ED he underwent extensive evaluation. BP 172/94, HR 81, T 97.9F, RR 18, 97% on RA. CBC, Coag panel, CMP significant for RBC 5.79, Hg 17.3, Hct 50.7, Cr 0.5, glu 133. Mag 2. Trop < 0.012. UA 4+ glucose. COVID, RSV, Flu neg. CT brain and CTA head and neck no acute process. CXR no acute process. EKG sinus rhythm with no ST-T wave changes. Patient is admitted for further workup and management. Neurology consulted, likely cranial nerve palsy. 02/18 Patient was seen and examined. Feeling well. Still with double vision. Would like to go home. CBC and CMP significant for RBC 5.75, Hg 17.4, Hct 32.7, BUN/Cr 28. A1c 7.6. Lipid panel T. Chol 108, TG 169, LDL 43.1. Discharge Plan: Discussed with Dr. Alvarado, unlikely CVA, likely cranial nerve pal sy from diabetes, OK for outpatient MRI. Advised follow up with Opthalmology within 1 week of discharge [facility] Also advised to obtain referral for MRI brain/orbit w/wo contrast through his PCP. General: non toxic, no distress, appears at stated age Derm: warm, dry Head: atraumatic, normocephalic, symmetric Eyes: EOMI, no lid lag, anicteric sclera Mouth: no lip lesion, mucus membranes moist Cardiovascular: good distal perfusion in all 4 extremities Lungs: breathing comfortably, no accessory muscle use Ext: no gross muscle atrophy, no edema, no contractures Neuro: no focal neurologic deficits besides right facial droop Psych: Alert, oriented, appropriate affect Discharge Diagnosis: Diplopia with Ophthalmalgia COPD CVA with right sided facial paralysis DM HTN Depression Nicotine abuse This complex discharge took 35 minutes to complete. Patient Condition at Discharge: Stable Plan - Discharge Summary Discharge Rx Participant: No New Discharge Prescriptions: Continue Meloxicam [Mobic] 15 mg PO DAILY Aspirin 81 mg PO DAILY 30 Days #30 chew Montelukast [Singulair] 10 mg PO HS 30 Days #30 tab Hydrocodone/Acetaminophen [[place] 10-325] 1 tab PO TID PRN PRN Reason: Pain Atorvastatin [Lipitor] 80 mg PO HS Isosorbide Mononitrate ER [Imdur] 30 mg PO QAM Insulin Glargine,Hum.rec.anlog [Lantus Solostar Pen] 40 units SQ DAILY Insulin Aspart [NovoLOG Flexpen] 30 units SQ BID-W/MEALS Lisinopril-Hctz 10-12.5 mg [Zestoretic 10-12.5] 1 tab PO DAILY Gabapentin 300 mg PO HS Clotrimazole Cream [Lotrimin Cream] 1 applic TOPICAL BID Baclofen [Lioresal] 20 mg PO BID Tretinoin [Tretinoin 0.05%] 1 applic TOPICAL DAILY Empagliflozin [Jardiance] 25 mg PO DAILY PARoxetine [Paxil] 50 mg PO DAILY Loratadine [Claritin] 10 mg PO DAILY Lidocaine 4% Cream 1 applic TOPICAL DAILY Cholecalciferol [Vitamin D3 (25 Mcg = 1000 Iu)] 50 mcg PO DAILY Ascorbic Acid [Vitamin C] 250 mg PO DAILY Discharge Medication List Meloxicam [Mobic] 15 mg PO DAILY 03/01/17 [History] Aspirin 81 mg PO DAILY 30 Days #30 chew 06/28/17 [Rx] Montelukast [Singulair] 10 mg PO HS 30 Days #30 tab 06/28/17 [Rx] Atorvastatin [Lipitor] 80 mg PO HS 04/21/18 [History] Hydrocodone/Acetaminophen [[place] 10-325] 1 tab PO TID PRN 04/21/18 [History] Isosorbide Mononitrate ER [Imdur] 30 mg PO QAM 12/19/21 [History] Empagliflozin [Jardiance] 25 mg PO DAILY 07/22/23 [History] Ascorbic Acid [Vitamin C] 250 mg PO DAILY 02/17/25 [History] Baclofen [Lioresal] 20 mg PO BID 02/17/25 [History] Cholecalciferol [Vitamin D3 (25 Mcg = 1000 Iu)] 50 mcg PO DAILY 02/17/25 [History] Clotrimazole Cream [Lotrimin Cream] 1 applic TOPICAL BID 02/17/25 [History] Gabapentin 300 mg PO HS 02/17/25 [History] Insulin Aspart [NovoLOG Flexpen] 30 units SQ BID-W/MEALS 02/17/25 [History] Insulin Glargine,Hum.rec.anlog [Lantus Solostar Pen] 40 units SQ DAILY 02/17/25 [History] Lidocaine 4% Cream 1 applic TOPICAL DAILY 02/17/25 [History] Lisinopril-Hctz 10-12.5 mg [Zestoretic 10-12.5] 1 tab PO DAILY 02/17/25 [History] Loratadine [Claritin] 10 mg PO DAILY 02/17/25 [History] PARoxetine [Paxil] 50 mg PO DAILY 02/17/25 [History] Tretinoin [Tretinoin 0.05%] 1 applic TOPICAL DAILY 02/17/25 [History] Follow up Appointment(s)/Referral(s): Guillaume Casiano DO [Primary Care Provider] - 1-2 days Activity/Diet/Wound Care/Special Instructions: Follow up with Opthamology within 1 week of discharge. Please see your PCP for a referral for MRI brain/orbit w/wo contrast. Follow up with your PCP within 1-2 days of discharge. Discharge Disposition: HOME SELF-CARE
[2025-02-18 13:18] VITALS: BP 167/89; PULSE 61; RESP 16
== END 2025-02-18 13:22 | disposition home or self-care (01) ==
LOC: EC 10:36 → 6NMEDSUR 14:27 → 1SOBS 21:15
PROVIDERS: ADMIT Family Medicine; ATTEND Family Medicine
DX: H53.2 Diplopia (principal); E11.40 Type 2 diabetes mellitus with diabetic neuropathy, unspecified; E78.5 Hyperlipidemia, unspecified; F17.200 Nicotine dependence, unspecified, uncomplicated; I10 Essential (primary) hypertension; J44.9 Chronic obstructive pulmonary disease, unspecified; F32.A Depression, unspecified; G51.0 Bell's palsy; F41.9 Anxiety disorder, unspecified; Z82.49 Family history of ischemic heart disease and other diseases of the circulatory system; Z79.1 Long term (current) use of non-steroidal anti-inflammatories (NSAID); Z79.4 Long term (current) use of insulin; Z79.82 Long term (current) use of aspirin; Z79.899 Other long term (current) drug therapy
CPT/HCPCS: 96361; 96374; 96375; 99285; 36415; 94640 ×2; 93005; 97161; 92523; 80061; 80053 ×2; 85652; 83735; 84484; 85025 ×2; 85610; 85730; 86140; 81003; 83036; 87636; 71046; 70496; 70450; 70498; G0378 ×2; S4990 ×2; J1200; J2405; J1885; Q9967